=== PATIENT | male | born 1950 | race Caucasian/White ===

== ENCOUNTER 2018-09-18 21:46 | Outpatient (REF) | payer SELFPAY ==
[2018-09-18 22:23] LABS: Prothrombin Time 53.5 sec (9.3-11.0)
[2018-09-18 22:51] LABS: INR 5.3 (0.9-1.1)
== END 2018-09-18 22:06 ==
LOC: NCHCN 21:46
PROVIDERS: Orthopaedic Surgery; PCP Internal Medicine; Visit Provider Internal Medicine
DX: Z96.651 Presence of right artificial knee joint (principal); Z79.01 Long term (current) use of anticoagulants; Z51.81 Encounter for therapeutic drug level monitoring
CPT/HCPCS: 85610

== ENCOUNTER 2018-09-21 21:52 | Outpatient (REF) | payer SELFPAY ==
[2018-09-21 23:19] LABS: INR 3.8 (0.9-1.1); Prothrombin Time 38.3 sec (9.3-11.0)
== END 2018-09-21 22:12 ==
LOC: LBN 21:52
PROVIDERS: PCP Internal Medicine; Visit Provider Internal Medicine
DX: Z96.651 Presence of right artificial knee joint (principal); Z79.01 Long term (current) use of anticoagulants; Z51.81 Encounter for therapeutic drug level monitoring; R69 Illness, unspecified
CPT/HCPCS: 85610

== ENCOUNTER 2018-09-24 22:07 | Outpatient (REF) | payer SELFPAY ==
[2018-09-24 23:12] LABS: INR 1.6 (0.9-1.1); Prothrombin Time 16.4 sec (9.3-11.0)
== END 2018-09-24 22:27 ==
LOC: LBN 22:07
PROVIDERS: PCP Internal Medicine; Visit Provider Orthopaedic Surgery
DX: M17.11 Unilateral primary osteoarthritis, right knee (principal); Z96.651 Presence of right artificial knee joint; Z79.01 Long term (current) use of anticoagulants; R79.1 Abnormal coagulation profile
CPT/HCPCS: 85610

== ENCOUNTER 2018-09-28 21:00 | Outpatient (REF) | payer SELFPAY ==
[2018-09-28 21:57] LABS: INR 1.4 (0.9-1.1); Prothrombin Time 14.2 sec (9.3-11.0)
== END 2018-09-28 21:20 ==
LOC: LBO 21:00
PROVIDERS: PCP Internal Medicine; Visit Provider Orthopaedic Surgery
DX: Z96.651 Presence of right artificial knee joint (principal); Z47.1 Aftercare following joint replacement surgery; Z79.01 Long term (current) use of anticoagulants; Z51.81 Encounter for therapeutic drug level monitoring; R79.1 Abnormal coagulation profile
CPT/HCPCS: 85610

== ENCOUNTER 2018-10-01 20:49 | Outpatient (REF) | payer SELFPAY ==
[2018-10-01 21:27] LABS: INR 1.7 (0.9-1.1)
== END 2018-10-01 21:09 ==
LOC: LBN 20:49
PROVIDERS: PCP Internal Medicine; Visit Provider Orthopaedic Surgery
DX: R79.1 Abnormal coagulation profile (principal); Z96.653 Presence of artificial knee joint, bilateral; Z47.1 Aftercare following joint replacement surgery
CPT/HCPCS: 85610

== ENCOUNTER → 2023-05-09 00:16 | Outpatient (CLI) | payer OTHER, SELFPAY ==
--- NOTE | 2023-05-09 | DI.RAD_ITS ---
Exam(s) XR LUMBAR SPINE COMPLETE EXAM: XR LUMBAR SPINE COMPLETE CLINICAL HISTORY: BARBIE [id number] LOW BACK PAIN M54.50 SI JOINT PAIN. TECHNIQUE: 2D digital imaging was performed of the lumbar spine. Five images were obtained. AP, la teral, right oblique, left oblique and L5-S1 spot views were obtained. COMPARISON: No exams were available for comparison FINDINGS: BONES: No fracture or destructive lesion. There are endplate osteophytes at all levels of the lumbar spine. There are degenerative changes of the facets at multiple levels. DISKS: There is disc space narrowing at L3-L4 and L5-S1. ALIGNMENT: There is a mild right convex curvature of the lumbar spine centered at the L3-L4 level. N o spondylolysis or spondylolisthesis. SOFT TISSUE: Atherosclerosis is present. 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 DATA REPOSITORY: RADIATION DOSE DELIVERED:
== END ==
PROVIDERS: PCP Internal Medicine; Visit Provider Physician Assistant
DX: M51.36 Other intervertebral disc degeneration, lumbar region (principal)
CPT/HCPCS: 72110

== ENCOUNTER → 2023-11-27 02:28 | Outpatient (CLI) | payer OTHER, SELFPAY ==
--- NOTE | 2023-11-27 12:30 | DI.US_ITS ---
APPROVED REPORT EXAM: Comprehensive 2D, Doppler, and color-flow Echocardiogram Patient Location: Out-Patient Shingle Sawyer: Lea Marie RDCS (AE) Indications: Unspecified atrial fibrillation, HTN, OLIVER Other Information Study Quality: Adequate. Technically limited study due to body habitus. Conclusion Normal left ventricular wall thickness chamber size. Ejection fraction is 60%. Wall motion is normal Normal right venttricular size and function Both atria are normal in sizw. The aortic valve is sclerotic and trileaflet without stenosis or r egurgitation Mitral annular calcification. trace mitral regurgitation Estimated right ventricular systolic pressure is 27 mmHg Wall motion Left Ventricle The left ventricle is normal size. The left ventricular systolic function is normal. The left ventric ular ejection fraction is within the normal range. There is normal left ventricular wall thickness. T here is normal LV segmental wall motion. There is no ventricular septal defect visualized. LVEF is 6 0%. Right Ventricle The right ventricle is normal size. The right ventricular systolic function is normal. Atria The left atrium size is normal. The right atrium size is normal. The interatrial septum is intact wit h no evidence for an atrial septal defect. Aortic Valve Aortic valve is calcified. Aortic valve is trileaflet. No hemodynamically significant valvular aort ic stenosis. No aortic regurgitation is present. Mitral Valve Mild mitral annular calcification. No evidence of mitral valve stenosis. Trace mitral regurgitation. Tricuspid Valve The tricuspid valve is normal in structure. There is no tricuspid valve stenosis. Mild tricuspid regu rgitation. The RVSP is 27.2 mmHg. Pulmonic Valve The pulmonary valve is normal in structure. There is no pulmonic valvular stenosis. There is no pulmo geetha valvular regurgitation. Great Vessels The aortic root is normal in size. The ascending aorta is normal in size. Aortic arch is normal in ca liber. IVC is normal in size and collapses >50% with inspiration. Pericardium There is no pericardial effusion. 2D Dimensions IVSD d PLAX 1.20 cm M: 0.6-1.2 Ao Root d 3.18 cm M: 3.1 - 3.7 LVPW d PLAX 1.20 cm M: 0.6 - 1.2 Ao Asc Diam d 3.17 cm M: 2.6 - 3.4 LVID d PLAX 4.40 cm M: 4.2 - 5.8 LVDs 3.10 cm M: 2.5 - 4.0 LV EF Teichholz 58.0 % FS 29.59 % LV EDV (Teich) 116.5 mL LV ESV (Teich) 50.8 mL M-Mode TAPSE 2.10 cm (M/F) >1.7 Auto EF LV EDV A4C 96.6 mL LV EDV A2C 136.6 mL LV EDV BP 115.0 mL LV ESV A4C 40.6 mL LV ESV A2C 56.7 mL LV ESV BP 47.1 mL LVEF(%) A4C 58.0 % LVEF(%) A2C 58.5 % LVEF(%) BP 59.1 % LV SV A4C 56.1 ml LV SV A2C 79.9 ml LV SV BP 67.9 ml LV CO A4C 4.0 L/min LV CO A2C 7.1 L/min LV CO BP 5.5 L/min HR A4C 70.73 BPM HR A2C 88.67 BPM LV EDV Index (BP) LA Volume LA Length A4C 6.4 cm LA Length A2C 6.6 cm LA Area A4C s 19.96 cm2 LA Area A2C s 25.46 cm2 LA Vol A4C A-L 52.90 mL LA Vol A2C A-L 82.77 mL LA Vol Biplane A-L 67.5 mL LA Vol/BSA A4C A-L LA Vol/BSA A2C A-L LA Vol/BSA BP A-L 28.7 mL/m2 LA Vol A4C MOD 49.1 mL LA Vol A2C MOD 77.5 mL LA Vol BP MOD 62.6 mL RA Volume RA Area A4C 18.0 cm2 RA ESV A4C (A-L) 50.9mL RA Vol/BSA A4C A-L RA Length A4C 5.4 cm RA ESV A4C (MOD) 47.5mL LV Diastology MV E' medial 0.405 (>0.07 m/s) MV E Vmax 0.74 (0.4-1.3 m/s) MV E/E' MED 1.83 (<14) MV A Vmax 0.75 (0.4-1.3 m/s) MV E' lateral 0.106 (>0.1 m/s) E/A Ratio 1.0 MV E/E' LAT 6.97 (<14) MV E' Average 0.255 m/s MV E/E'(average) 2.90 Aortic Valve AoV Vmax 2.00 m/s LVOT Vmax 1.45 m/s AoV Peak Grad 15.9 mmHg LVOT Peak Grad 8.4 mmHg AoV Area (Vmax) 2.50 cm2 LVOT VTI 0.329 m AoV VTI 0.375 m LVOT Mean Grad 4.4 mmHg AoV Mean Demarcus. 1.43 m/s LVOT SV 113.42 mL AoV Mean Grad 9.2 mmHg LVOT Diam s 2.05 cm AoV Area (VTI) 3.02 cm2 Velocity Ratio 0.73 Mitral Valve MV DT 326 (160-240 msec) MV Vmax TIPS 0.74 m/s MV Mean Grad 1.4 (<2mmHg) MV VTI 0.262 m Pulmonary Valve PV Vmax 1.54 (0.5-1.5 m/s) RVOT Vmax 1.03 m/s PV Peak Grad 9.5 mmHg RVOT Peak Gr. 4.2 mmHg PV Mean Demarcus 1.05 m/s RVOT VTI 0.170 m PV Mean Grad 5.2 mmHg RVOT Mean Gr. 2.5 mmHg Tricuspid Valve RA Pressure 3.00 mmHg TR Vmax 2.46 m/s TV S' 0.16 m/s TR Peak Grad 24.2 mmHg RVSP (TR) 27.2 mmHg
--- NOTE | 2023-11-27 13:25 | DI.RAD_ITS ---
Exam(s) XR CHEST 2V PA LATERAL EXAM: XR CHEST 2V PA LATERAL CLINICAL HISTORY: [id number] J18.9 Pneumonia,unspecified organism, FU RLL Pneumonia. TECHNIQUE: 2D digital imaging was performed. COMPARISON: No exams were available for comparison FINDINGS: 2 views: Heart size is normal. The mediastinum is not widened. Left lung is clear. However, there is a concerning round thick-walled nodular infiltrate in the righ t upper lobe which measures 6 by 6 cm and exhibits a rim thickness of approximately 0.8 cm. Does not contain an obvious fluid level. There are no pleural effusions. No obvious prominence of the ipsil ateral right hilum. IMPRESSION: There is a 6 x 6 cm concerning round mass infiltrate in the right upper lobe. Chest CT scan recommen ded. Infectious versus neoplasm. There are no obvious pleural effusions. The opposite-left lung is clear. Referring office notified DATA REPOSITORY: RADIATION DOSE DELIVERED:
== END ==
PROVIDERS: PCP Internal Medicine; Visit Provider Physician Assistant
DX: J18.9 Pneumonia, unspecified organism (principal)
CPT/HCPCS: 71046; 93306

== ENCOUNTER 2023-12-17 11:46 | Emergency (ER) | payer OTHER, SELFPAY ==
[2023-12-17 11:50] VITALS: BP 117/72; PULSE 78; RESP 18; TEMP 36.9; O2SAT 98
--- NOTE | 2023-12-17 12:16 | W.ED.GENAD ---
Discharge Plan Disposition Patient Disposition: Home Condition: Good Discharge Details Clinical Impression: Chest wall contusion Primary Care Provider: Bruce Villa ED Provider: Carole Fritz Home Meds and New Rx's Prescriptions: No Action metformin 1,000 mg tablet 1,000 mg PO BID empagliflozin 25 mg tablet 25 mg PO DAILY atorvastatin 20 mg tablet 20 mg PO DAILY propranolol 80 mg tablet 80 mg PO ONCE lisinopril 10 mg tablet 10 mg PO DAILY cholecalciferol (vitamin D3) 25 mcg (1,000 unit) capsule 25 mcg PO DAILY acetaminophen 500 mg capsule 1,000 mg PO Q6H PRN pantoprazole 40 mg tablet,delayed release (DR/EC) 40 mg PO QAM Patient Comments: TAKE 1 TABLET BY MOUTH DAILY 30 MINUTES BEFORE FIRST MEAL Eliquis 5 mg tablet 5 mg PO Q12H Patient Comments: TAKE 1 TABLET BY MOUTH TWICE DAILY benzonatate 200 mg capsule 200 mg PO BID PRN Patient Comments: TAKE 1 CAPSULE BY MOUTH THREE TIMES DAILY NEEDED FOR COUGH Discharge Instructions Instructions: Contusion in Adults (ED) Additional Instructions: Please continue to encourage hydration. Use the incentive spirometer as instructed by nursing staff. Encourage deep breathing as this will help prevent recurrent pneumonia. May use Tylenol as needed for discomfort. Please continue with lidocaine patches, these are available [id number], to augment the Tylenol to help with your discomfort. You may also find splinting with a pillow helps when you need to cough or sneeze or take a deep breath. Please keep your upcoming appoint with your flower arranger. As you are leaving prior to the official x-ray read, I will call you with any abnormal results and you will need to return to the emergency department. Please follow-up with your primary care provider in the next 1 to 2 weeks for reevaluation. If you develop any shortness of breath, difficulty breathing, fever/chills or other new/worsening symptoms please seek care urgently once again. Referrals: Bruce Villa [Primary Care Provider] - Discharge Data Discharge Date/Time-TO BE ENTERED AT DEPARTURE: 12/17/23 15:03 HPI General Date/Time Provider Initiated Documentation: 12/17/23 12:05. Limitations to Documentation: no limitations. Information obtained by: patient, family () and RN notes reviewed. History of Present Illness 73 year old M presents to the emergency department with the chief complaint of left sided rib pain after fall over a week ago, described as moderate, Quality is described as aching, and is localized to the chest. Patient reports no radiation. Patient started experiencing this week(s) and it has been constant. Immobilization improves symptom(s), Movement worsens symptoms . Patient notes no other symptoms.. Patient did receive the following treatments prior to arrival, none Related Data Home Medications Medication Instructions Recorded Confirmed acetaminophen 500 mg capsule 1,000 mg PO Q6H PRN 12/17/23 12/17/23 apixaban 5 mg tablet (Eliquis) 5 mg PO Q12H 12/17/23 12/17/23 atorvastatin 20 mg tablet 20 mg PO DAILY 12/17/23 12/17/23 benzonatate 200 mg capsule 200 mg PO BID PRN 12/17/23 12/17/23 cholecalciferol (vitamin D3) 25 25 mcg PO DAILY 12/17/23 12/17/23 mcg (1,000 unit) capsule empagliflozin 25 mg tablet 25 mg PO DAILY 12/17/23 12/17/23 lisinopril 10 mg tablet 10 mg PO DAILY 12/17/23 12/17/23 metformin 1,000 mg tablet 1,000 mg PO BID 12/17/23 12/17/23 pantoprazole 40 mg tablet,delayed 40 mg PO QAM 12/17/23 12/17/23 release propranolol 80 mg tablet 80 mg PO ONCE 12/17/23 12/17/23 Allergies Allergy/AdvReac Type Severity Reaction Status Date / Time No Known Allergies Allergy Unverified 12/17/23 12:38 General Stated Complaint: Chest/Rib CK: 4 Review of Systems Constitutional Constitutional: Reports as per HPI, Denies chills, Denies fever(s), Denies headache(s) and Denies weakness ENT Ears, Nose, Mouth, and Throat: Denies headache(s) Cardiovascular Cardiovascular: Reports as per HPI Respiratory Respiratory: Reports as per HPI and Denies cough Musculoskeletal Musculoskeletal: Reports as per HPI and Denies tingling Integumentary/Breasts Skin/Breast: Reports as per HPI, Denies rash and Denies wounds Neurologic Neurologic: Reports as per HPI, Denies headache(s), Denies tingling, Denies paresthesias and Denies weakness Exam Const General: cooperative, healthy appearing, comfortable, no acute distress, well developed and well groomed Nutritional Appearance: well nourished and overweight Orientation: alert and awake Chest Chest: normal inspection of the chest, no crepitus, no localized rib tenderness, no masses, tenderness (left lateral chest wall) and No rash Resp Effort & Inspection: normal respiratory effort, able to speak in complete sentences and no respiratory distress Auscultation: clear to auscultation bilaterally Cardio Rate: regular rate Rhythm: regular rhythm Heart Sounds: S1 normal and S2 normal GI Inspection: normal to inspection Palpation: soft, not rigid and nontender Back/Spine/Pelvis Back: no CVA tenderness Cervical Spine: normal cervical lordosis, cervical ROM normal, No cervical spinal tenderness and No step off deformity Thoracic/Lumbar Spine: thoracic and lumbar spine normal to inspection, thoraco-lumbar ROM normal, pain with thoraco-lumbar ROM (in left lateral chest wall over ribs), No paraspinal tenderness, No thoraco-lumbar spasm, No thoracic spinal tenderness and No lumbar spinal tenderness Skin General skin exam: no rashes or lesions noted Lesions: no lesions Rashes: no rashes Trauma: no lacerations or abrasions Neuro General: patient alert and patient awake Cognition: normal cognition Speech: speech normal Gait: normal gait Motor: muscle tone normal throughout Sensory Exam: no sensory deficits noted Course Vital Signs Vital signs: Vital Signs Temperature 36.9 C 12/17/23 11:50 Pulse 78 12/17/23 11:50 Respiratory Rate 18 12/17/23 11:50 Blood Pressure 117/72 12/17/23 11:50 Pulse Oximetry 98 12/17/23 11:50 Temperature 36.9 C 12/17/23 11:50 Temperature Source Tympanic 12/17/23 11:50 Pulse 78 12/17/23 11:50 Respiratory Rate 18 12/17/23 11:50 Respiratory Effort Normal 12/17/23 12:03 Respiratory Depth Shallow 12/17/23 12:03 Respiratory Pattern Normal 12/17/23 12:03 Blood Pressure 117/72 12/17/23 11:50 Blood Pressure Position Sitting 12/17/23 11:50 Pulse Oximetry 98 12/17/23 11:50 Oxygen Delivery Method Room Air 12/17/23 11:50 Oxygen Flow Rate 0 12/17/23 11:50 Pain Level 8 12/17/23 11:50 Comment Took APAP early this morning. 12/17/23 11:50 Medical Decision Making Patient is a pleasant 73-year-old male, companied by his , with chief complaint of left-sided rib pain that began just over a week ago after patient fell. He reports that he has poor balance, is being followed by his primary care for this. States that he walks with a cane but sometimes he tries to walk short distances without it when he gets out of the car. Reports that about a week ago, he took a tumble towards the right side during 1 of these episodes. He reports that his difficulty with equilibrium began quite sometime ago and has not acutely changed. He denies any shortness of breath or difficulty breathing. He does state that pain is worse with deep inspiration. Reports he was recently treated for pneumonia. Has not had any cough or fevers. Reports that when he fell he landed on his side against the ground. Denies striking his head. No loss of consciousness. Denies any abdominal pain. No hematuria. No change in bowel or bladder habits. Denies any pain in the abdomen. No nausea or vomiting. No incontinence. Denies any neck or back pain. He does report that he has had a small amount of blood up post his pneumonia with deep coughing but this sounds to be very small amount. On exam, patient appears nontoxic. He appears uncomfortable with movement but otherwise stable. His vital signs are stable. His lungs are clear. Normal cardiac exam. Abdomen benign. He is tender along the left lateral ribs but no focal area of discomfort, no step-offs palpable. Lung sounds are clear. No appreciable ecchymosis. Patient has an appointment with his flower arranger in the [place] in 1 hour. As this will be difficult to reschedule, will obtain a rib series and attempt to discharge him shortly, we discussed discharge prior to the read from the radiologist. Will ensure no pneumothorax or complication but based on his exam, I find this unlikely. If needed, patient is willing to come back to the emergency department after his cardiology appointment Reviewed CXR, no pneumo noted by myself. To get them to appointment, will d/c and call with results once read by radiologist. Discussed supportive care and return precautions. He has IS at home and will use as he has had pna in the past. Encouraged hydration. All of thier quesitons and concenrs were addressed. After their departure, imaging was reviewed by radiologist. MEDIASTINUM: Normal. HEART: Normal. PULMONARY VASCULATURE: Normal. LUNGS: The thick-walled cystic structure in the right upper lobe is again seen. The lungs are otherwise clear. PLEURAL SPACE: No pleural effusion or pneumothorax. BONE:Within normal limits for the patient's age. There is a fracture of the anterior aspect of the left 8th rib. It is mildly displaced. There is an old healed left 7th rib fracture. LEFT RIBS: Normal. OTHER FINDINGS:Normal. IMPRESSION: 1. Persistent right upper lobe cavitary lesion. 2. Mildly displaced fracture of the anterior aspect of the left 8th rib. 3. No pneumothorax or pleural effusion. Called and patient, spoke with them regarding the broken rib. They mentioned a recent CT that they had, reviewed images and report myself. Concerning for possible malignancy vs. asperigolloma, large cavitary lesion. We discussed this. 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 They have an appointment next week but I advised that they call with the results and to discuss as they recommended biopsy. Answered questions, they agree with this plan. Discussed supportive care for rib fx. He has IS at home, has appointment with PCP next week. Quality:SDOH Health Related Social Needs: Health related social needs risk of homeless PFSH All Active Problems (Updated 12/17/23 @ 12:38 by NAMITA Villareal) Chest wall contusion (Acute) Social History Smoking/Tobacco Use Status: Never Smoking risk assessment performed?: Yes Alcohol Intake: current Alcohol Intake frequency: 0-2 drinks per day Alcohol type: beer Substance use type: does not use Housing: house Do you feel safe at home: Yes Do you feel safe in your relationship?: Yes PAWSS Have you Been Recently Intoxicated or Drunk Within the Last 30 days?: No Have you Ever Experienced Previous Episodes of Alcohol Withdrawal?: No Have you ever Experienced Withdrawal Seizures?: No Have you ever Experienced Delirium Tremens(DT)s?: No Have you ever undergone Alcohol Rehabilitation Treatment (i.e, inpt ot outpatient treatment programs)?: No Have you ever Experienced Blackouts?: No Have you ever Combined Alcohol with other Downers within the last 90 days?: No Have you ever Combined Alcohol with any other Substance of Abuse during the last 90 days?: No Positive Blood Alcohol level on Presentation? [PCS.BAL]: No Evidence of Increased Autonomic Activity (i.e. HR>120, tremor, sweating, agitation, nausea)?: No Result: 0
[2023-12-17] MEDS: Acetaminophen 500 MG TAB 1000 MG PO (12:21)
--- NOTE | 2023-12-17 12:50 | DI.RAD_ITS ---
Exam(s) XR RIBS LT W PA LAT CHEST EXAM: XR RIBS LT W PA LAT CHEST CLINICAL HISTORY: fall onto left ribs one week ago TECHNIQUE: 2D digital imaging was performed. Six images are obtained. COMPARISON: CR XR CHEST 2V PA LATERAL from 11/27/[address] CHEST WO from 12/12/2023 FINDINGS: MEDIASTINUM: Normal. HEART: Normal. PULMONARY VASCULATURE: Normal. LUNGS: The thick-walled cystic structure in the right upper lobe is again seen. The lungs are otherw ise clear. PLEURAL SPACE: No pleural effusion or pneumothorax. BONE:Within normal limits for the patient's age. There is a fracture of the anterior aspect of the l eft 8th rib. It is mildly displaced. There is an old healed left 7th rib fracture. LEFT RIBS: Normal. OTHER FINDINGS:Normal. IMPRESSION: 1. Persistent right upper lobe cavitary lesion. 2. Mildly displaced fracture of the anterior aspect of the left 8th rib. 3. No pneumothorax or pleural effusion. DATA REPOSITORY: RADIATION DOSE DELIVERED:
[2023-12-17] MEDS: Lidocaine 5% Patch 1 PATCH TP (13:02)
== END 2023-12-17 15:03 | disposition home or self-care (01) ==
LOC: ER 13:25
PROVIDERS: Emergency Provider Physician Assistant; PCP Internal Medicine
DX: S20.212A Contusion of left front wall of thorax, initial encounter (principal); S22.32XA Fracture of one rib, left side, initial encounter for closed fracture; W01.0XXA Fall on same level from slipping, tripping and stumbling without subsequent striking against object, initial encounter; Y93.01 Activity, walking, marching and hiking; Y92.89 Other specified places as the place of occurrence of the external cause; Z79.01 Long term (current) use of anticoagulants
CPT/HCPCS: 99283; 71046; 71100

== ENCOUNTER 2024-05-06 15:01 | Emergency (ER) | payer OTHER, SELFPAY ==
[2024-05-06] VITALS (19 sets, daily range): BP systolic 119–141; BP diastolic 71–89; PULSE 54–97; RESP 12–20; TEMP 36.2; O2SAT 93–95
--- NOTE | 2024-05-06 15:45 | RT.EKG_ITS ---
APPROVED REPORT Exam: Resting ECG Reason for Exam: dizziness Patient Location: E HR:93 bpm ECG Measurements Heart Rate 93 AXIS ID 167 P 46 QRSd 99 QRS 76 QT 405 T -19 QTc 505 Conclusion Unknown rhythm, irregular rate...V-rate 75-129, variation>10% Nonspecific T abnormalities, diffuse leads...T <-0.10mV, ant/lat/inf Prolonged QT interval...QTc >500mS
--- NOTE | 2024-05-06 16:30 | DI.CT_ITS ---
Exam(s) CT BRAIN NECK CTA EXAM: CT BRAIN NECK CTA CLINICAL HISTORY: dizziness with ambulation, unsteady. TECHNIQUE: Imaging Protocol: Axial CT angiography was performed with multi-slice acquisition and mu lti-planar and/or 3D reconstructions. CONTRAST MATERIAL: Intravenous: Omnipaque 350 contrast volume:70 mL COMPARISON: CT CT CHEST WO from 12/12/2023 FINDINGS: CT Head W/O and W: Ventricles and Extra axial spaces: Normal in size and morphology for the patient's age. There is a 9 mm extra-axial mass along the high left parietal convexity which is partially calcified. The finding is most suggestive of a meningioma. Hemorrhage: None. Cerebral parenchyma: No evidence of an acute territorial infarct. No mass effect is identified. Midline shift: None. Brainstem/Cerebellum: Normal. Calvarium: Normal. Visualized Paranasal sinuses/Mastoids: Mucosal thickening in the visualized paranasal sinuses. Soft Tissues: Unremarkable. Enhancement: Unremarkable. CTA Neck W: Common Carotid: Right: No dissection, occlusion or significant stenosis. Left: No dissection, occlusion or significant stenosis. External Carotid: Right: No occlusion or significant stenosis. Left: No occlusion or significant stenosis. Internal Carotid: Right: No dissection, occlusion or significant stenosis. There is atherosclerotic calcification at t he origin of the internal carotid artery but no significant stenosis. Left: No dissection, occlusion or significant stenosis. Atherosclerotic calcification is seen at the origin of the internal carotid artery but no significant stenosis is seen. Vertebral Artery: Right: No dissection, occlusion or significant stenosis. Atherosclerosis at the origin of the right vertebral artery but no significant stenosis. Left: No dissection, occlusion or significant stenosis. Lung Apices: There is again seen scarring in the right upper lobe. There has been decrease in size o f the right upper lobe cavitary lesion. There is again seen bronchial wall thickening and scar bronc hiectasis in the right lung. Bones: Within normal limits for the patient's age. Degenerative changes are present throughout the ce rvical spine. Soft Tissues: Normal. Thyroid gland: Unremarkable. CTA Brain W: Internal Carotid Arteries: Atherosclerotic calcification is seen in the internal carotid arteries but no significant stenosis. No aneurysm or occlusion. Anterior Cerebral Arteries: Right: No aneurysm, occlusion or significant stenosis. Left: No aneurysm, occlusion or significant stenosis. Middle Cerebral Arteries: Right: No aneurysm, occlusion or significant stenosis. Left: No aneurysm, occlusion or significant stenosis. Posterior Cerebral Arteries: Right: No aneurysm, occlusion or significant stenosis. Left: No aneurysm, occlusion or significant stenosis. Vertebral Arteries: Right: No aneurysm, occlusion or significant stenosis. Left: No aneurysm, occlusion or significant stenosis. Basilar Artery: No aneurysm, occlusion or significant stenosis. IMPRESSION: 1. No large vessel occlusion or significant stenosis on the CT angiography of the head. 2. No acute intracranial process. 3. No occlusion or significant stenosis on the CT angiography of the neck. RADIATION DOSE DELIVERED: Total DLP DATA REPOSITORY: All CT scans at this facility are submitted to the National Radiology Data Registry (NRDR) Dose Index Registry (DIR) with the [employer] (ACR). RADIATION OPTIMIZATION: All CT scans at this facility use at least one of these dose optimization te chniques: automated exposure control; mA and/or kV adjustment per patient size (includes targeted exa ms where dose is matched to clinical indication); or iterative reconstruction.
--- NOTE | 2024-05-06 16:30 | DI.RAD_ITS ---
Exam(s) XR CHEST 2V PA LATERAL EXAM: XR CHEST 2V PA LATERAL CLINICAL HISTORY: dizziness TECHNIQUE: 2D digital imaging was performed of the chest. Two images were obtained. PA and lateral views were obtained. COMPARISON: CR XR RIBS LT W PA LAT CHEST from 12/17/2023 FINDINGS: MEDIASTINUM: Normal. HEART: Normal. PULMONARY VASCULATURE: Normal. LUNGS: A cavitary lesion in the right upper lobe has shown interval decrease in size. No focal conso lidating infiltrates are present. PLEURAL SPACE: No pleural effusion or pneumothorax. BONE:Within normal limits for the patient's age. OTHER FINDINGS:Normal. IMPRESSION: No acute pulmonary findings. DATA REPOSITORY: RADIATION DOSE DELIVERED:
--- NOTE | 2024-05-06 16:35 | ED.GENADUL_ITS ---
Discharge Plan Disposition Patient Disposition: Home Condition: Stable Discharge Details Clinical Impression: Dizziness, Hypomagnesemia Primary Care Provider: Bruce Villa ED Provider: Suad Jamison Home Meds and New Rx's Prescriptions: No Action metformin 1,000 mg tablet 1,000 mg PO BID empagliflozin 25 mg tablet 25 mg PO DAILY atorvastatin 20 mg tablet 20 mg PO DAILY propranolol 80 mg tablet 80 mg PO ONCE lisinopril 10 mg tablet 10 mg PO DAILY cholecalciferol (vitamin D3) 25 mcg (1,000 unit) capsule 25 mcg PO DAILY acetaminophen 500 mg capsule 1,000 mg PO Q6H PRN pantoprazole 40 mg tablet,delayed release (DR/EC) 40 mg PO QAM Patient Comments: TAKE 1 TABLET BY MOUTH DAILY 30 MINUTES BEFORE FIRST MEAL Eliquis 5 mg tablet 5 mg PO Q12H Patient Comments: TAKE 1 TABLET BY MOUTH TWICE DAILY Discharge Instructions Instructions: Low Magnesium Level Additional Instructions: Please follow-up with your primary care provider for further evaluation of your dizziness. A referral to cardiology may be indicated. Keep your other specialist appointments and MRI appointment they have already set. Your workup today was reassuring; there is no evidence of blockage in the blood vessels of your brain. The only minor finding that we did find was that your magnesium was slightly low. I recommend that you take an vjjy-rhl-alirezh magnesium supplement such as Calm, a dissolvable supplement. Take according to package instructions. Return to emergency care if you develop new chest pain, episodes of passing out, severe headaches, vision change, uncontrollable nausea/vomiting, or if you are very worried and need to be rechecked again immediately. Referrals: Bruce Villa [Primary Care Provider] - [facility] General Date/Time Provider Initiated Documentation: 05/06/24 15:11 . [facility] Narrative: Bo Peña is a 73-year-old male with A-fib on anticoagulation with Eliquis, diabetes, HTN, HLD, and lung disease who presents to the emergency department for evaluation of dizziness. He reports onset was a couple of weeks ago unknown onset, says it has been gradually increasing in frequency and severity; it makes him feel unsteady on his feet and is worse with exertion. This is not accompanied by any other symptoms such as shortness of breath. does also note that he has had increasing confusion/word finding over the last couple of weeks since onset. He denies associated fever/chills, headache, vision changes, sore throat, congestion, cough, tinnitus, nausea/vomiting, chest pain, abdominal pain, change in bowel/bladder function, extremity weakness/parasthesias. He does not check his BG at home, but does check BP regularly (usually in the 110s-120s systolic). Denies h/o IL or CVA. He was evaluated at the [facility], advised to come to the ED for head scan because they were booking out to July. He is accompanied by his Physical exam remarkable for unsteadiness on feet with standing and slightly ataxic/unsteady gait. Alert and oriented x 3. Some mild word finding noted. Normal finger finger, finger-nose, Romberg, rapid alternating movements. 5 out of 5 muscle strength upper and lower extremities. Cranial nerves II through XII intact as tested. Moist mucous membranes. PERRL, EOMs intact. Easy work of breathing, lung sounds clear bilaterally. Normal heart sounds. Irregularly irregular rate. DDx includes but is not limited to: CVA, intracranial mass, electrolyte imbalance, occult infection, severe anemia, orthostatic hypotension, dehydration I independently interpreted the following tests: EKG notable for irregularly irregular heart rate, sinus rhythm. No changes consistent with acute ischemia, diffuse T wave inversions noted. No previous available for comparison. CBC, CMP reassuring. Magnesium slightly low at 1.6. UA not consistent with UTI. I did review [facility] records. Casey has history of pulmonary blastomycosis being treated with izoconazole, however providers do not believe this is related to new onset of symptoms. PCP doesintend to get an MRI outpatient, patient says that this is scheduled for July. CTA today reassuring, no acute occlusions or significant stenosis noted. Unclear etiology of feeling offkilter. No red flags on today's exam concerning for serious emergent etiology requiring further workup on emergency basis. Possible neurologic etiology, recommend f/u with outpt MRI and specialist follow up as scheduled. Reviewed red flags indicating need for return to emergency care. I did discuss noted hypomagnesemia with patient, he reports he has recently started magnesium supplements as this was noted outpatient as well. Related Data Home Medications ?Medication ?Instructions ?Recorded ?Confirmed acetaminophen 500 mg capsule 1,000 mg PO Q6H PRN 12/17/23 05/06/24 apixaban 5 mg tablet (Eliquis) 5 mg PO Q12H 12/17/23 05/06/24 atorvastatin 20 mg tablet 20 mg PO DAILY 12/17/23 05/06/24 cholecalciferol (vitamin D3) 25 25 mcg PO DAILY 12/17/23 05/06/24 mcg (1,000 unit) capsule empagliflozin 25 mg tablet 25 mg PO DAILY 12/17/23 05/06/24 lisinopril 10 mg tablet 10 mg PO DAILY 12/17/23 05/06/24 metformin 1,000 mg tablet 1,000 mg PO BID 12/17/23 05/06/24 pantoprazole 40 mg tablet,delayed 40 mg PO QAM 12/17/23 05/06/24 release propranolol 80 mg tablet 80 mg PO ONCE 12/17/23 05/06/24 Allergies Allergy/AdvReac Type Severity Reaction Status Date / Time No Known Allergies Allergy Verified 05/06/24 15:10 General Stated Complaint: Dizzy/Sync CK: 3 Review of Systems Narrative: see HPI Exam Const General: cooperative, healthy appearing, comfortable, no acute distress and well groomed Nutritional Appearance: overweight Orientation: alert and oriented x3 HENMT Head: normal to inspection Ears: hearing grossly normal bilaterally General nose exam: external nose normal Mouth: oral mucosae normal and moist mucous membranes Throat: posterior oropharynx normal Eyes Pupils: PERRL EOM: EOM intact bilaterally Resp Effort & Inspection: normal respiratory effort and able to speak in complete sentences Auscultation: clear to auscultation bilaterally Cardio Jugular venous pressure: no JVD Rate: regular rate Rhythm: abnormal rhythm irregularly irregular Neuro General: patient alert, patient oriented x3, tone normal, moves all extremities, no meningeal signs, no focal motor deficits and CN's II-XI intact bilaterally Cranial Nerves: CN's II-XI intact bilaterally, PERRL, EOM intact bilaterally, no nystagmus and hearing normal Cognition: abnormal cognition (word finding noted, somewhat slow to answer questions at times) Gait: ataxic Motor: muscle tone normal throughout Coordination: [id number] test normal and Romberg test normal Course Vital Signs Vital signs: Vital Signs Temperature 36.2 C L 05/06/24 15:07 Pulse 81 05/06/24 15:07 Respiratory Rate 16 05/06/24 15:07 Blood Pressure 119/71 05/06/24 15:07 Pulse Oximetry 95 05/06/24 15:07 Temperature 36.2 C L 05/06/24 15:07 Pulse 81 05/06/24 15:07 Respiratory Rate 16 05/06/24 15:07 Respiratory Effort Normal 05/06/24 15:12 Blood Pressure 119/71 05/06/24 15:07 Pulse Oximetry 95 05/06/24 15:07 Oxygen Delivery Method Room Air 05/06/24 15:07 Oxygen Flow Rate 0 05/06/24 15:07 Pain Level 0 05/06/24 15:07 Medical Decision Making Imaging Data Radiologic Study: Radiologist's impression: EXAM: CT BRAIN NECK CTA CLINICAL HISTORY: dizziness with ambulation, unsteady. TECHNIQUE: Imaging Protocol: Axial CT angiography was performed with multi- slice acquisition and multi-planar and/or 3D reconstructions. CONTRAST MATERIAL: Intravenous: Omnipaque 350 contrast volume:70 mL COMPARISON: CT CT CHEST WO from 12/12/2023 FINDINGS: CT Head W/O and W: Ventricles and Extra axial spaces: Normal in size and morphology for the patient's age. There is a 9 mm extra-axial mass along the high left parietal convexity which is partially calcified. The finding is most suggestive of a meningioma. Hemorrhage: None. Cerebral parenchyma: No evidence of an acute territorial infarct. No mass effect is identified. Midline shift: None. Brainstem/Cerebellum: Normal. Calvarium: Normal. Visualized Paranasal sinuses/Mastoids: Mucosal thickening in the visualized p aranasal sinuses. Soft Tissues: Unremarkable. Enhancement: Unremarkable. CTA Neck W: Common Carotid: Right: No dissection, occlusion or significant stenosis. Left: No dissection, occlusion or significant stenosis. External Carotid: Right: No occlusion or significant stenosis. Left: No occlusion or significant stenosis. Internal Carotid: Right: No dissection, occlusion or significant stenosis. There is atherosclerotic calcification at the origin of the internal carotid artery but no significant stenosis. Left: No dissection, occlusion or significant stenosis. Atherosclerotic calcification is seen at the origin of the internal carotid artery but no significant stenosis is seen. Vertebral Artery: Right: No dissection, occlusion or significant stenosis. Atherosclerosis at the origin of the right vertebral artery but no significant stenosis. Left: No dissection, occlusion or significant stenosis. Lung Apices: There is again seen scarring in the right upper lobe. There has been decrease in size of the right upper lobe cavitary lesion. There is again seen bronchial wall thickening and scar bronchiectasis in the right lung. Bones: Within normal limits for the patient's age. Degenerative changes are present throughout the cervical spine. Soft Tissues: Normal. Thyroid gland: Unremarkable. CTA Brain W: Internal Carotid Arteries: Atherosclerotic calcification is seen in the internal carotid arteries but no significant stenosis. No aneurysm or occlusion. Anterior Cerebral Arteries: Right: No aneurysm, occlusion or significant stenosis. Left: No aneurysm, occlusion or significant stenosis. Middle Cerebral Arteries: Right: No aneurysm, occlusion or significant stenosis. Left: No aneurysm, occlusion or significant stenosis. Posterior Cerebral Arteries: Right: No aneurysm, occlusion or significant stenosis. Left: No aneurysm, occlusion or significant stenosis. Vertebral Arteries: Right: No aneurysm, occlusion or significant stenosis. Left: No aneurysm, occlusion or significant stenosis. Basilar Artery: No aneurysm, occlusion or significant stenosis. IMPRESSION: 1. No large vessel occlusion or significant stenosis on the CT angiography of the head. 2. No acute intracranial process. 3. No occlusion or significant stenosis on the CT angiography of the neck. Quality:SDOH Health Related Social Needs: Health related social needs risk of homeless PFSH All Active Problems (Updated 05/06/24 @ 19:26 by Suad Santillan) Hypomagnesemia (Acute) Dizziness (Acute) Social History Smoking/Tobacco Use Status: Never Smoking risk assessment performed?: Yes Alcohol Intake: current Alcohol Intake frequency: 0-2 drinks per day Alcohol type: beer Substance use type: does not use Housing: house Do you feel safe at home: Yes Do you feel safe in your relationship?: Yes
[2024-05-06 16:58] LABS: Abs Immature Grans 0.01 10^3/uL (0.0-0.06); Absolute Basophil Count 0.05 10^3/uL (0.0-0.2); Absolute Eosinophil Count 0.13 10^3/uL (0.0-0.7); Absolute Lymphocyte Count 1.48 10^3/uL (1.2-3.4); Absolute Monocyte Count 0.38 10^3/uL (0.1-0.8); Absolute Neutrophil Count 2.15 10^3/uL (1.2-6.7); Basophils % 1.2 %; Eosinophils % 3.1 %; HCT 41.6 % (40.0-50.0); HGB 14.4 g/dL (13.5-17.5); Immature Grans % 0.2 %; Lymphocytes % 35.2 %; MCH 33.4 pg (27.0-33.0); MCHC 34.6 % (32.0-36.0); MCV 97 fL (80-95); MPV 10.1 fL (8.0-11.0); Neutrophils % 51.3 %; Platelet Count 130 10^3/uL (130-400); RBC 4.31 10^6/uL (4.36-5.78); RDW 14.5 % (11.8-14.1); RDW-SD 51.8 fL
[2024-05-06 17:16] LABS: ALT 26 U/L (16-63); AST 24 U/L (15-37); Albumin 3.3 g/dL (3.4-5.0); Alkaline Phosphatase 98 U/L (46-116); BUN 11 mg/dL (7-18); Bilirubin, Total 1.25 mg/dL (0.2-1.0); CREATININE 1.1 mg/dL (0.70-1.30); Calcium 8.9 mg/dL (8.5-10.1); Chloride 104 mmol/L (98-107); Estimated GFR 70.01 (mL/min/1.73m2); Glucose 161 mg/dL (74-106); Magnesium 1.6 mg/dL (1.8-2.4); Sodium 142 mmol/L (136-145); Total Protein 6.7 g/dL (6.4-8.2)
[2024-05-06] MEDS: Normal Saline - Diluent 50 ML VIAL IJ (18:22)
[2024-05-06] MEDS: Omnipaque 350 MG/ML 100 ML BTL 70 ML IJ (18:23)
[2024-05-06 19:05] LABS: Bilirubin Negative (Negative); Blood Negative (Negative); Clarity Clear (Clear); Glucose >=1000 mg/dL (Negative); Ketones Negative (Negative); Leukocyte Esterase Negative (Negative); Nitrite Negative (Negative); Specific Gravity 1.015 (1.005-1.025); pH 5.5 (5-8)
[2024-05-06 19:15] LABS: Bacteria Negative HPF (Negative); C & S Indicated? No; Crystals Negative HPF (Negative); Epithelial Cells Rare HPF (Negative); Mucus Negative (Negative); RBC 0-2 HPF (0-2); WBC Negative HPF (0-5)
== END 2024-05-06 19:35 | disposition home or self-care (01) ==
PROVIDERS: Emergency Provider Nurse Practitioner Family; PCP Internal Medicine
DX: E83.42 Hypomagnesemia; R94.31 Abnormal electrocardiogram [ECG] [EKG]; I48.91 Unspecified atrial fibrillation; E11.9 Type 2 diabetes mellitus without complications; I10 Essential (primary) hypertension; E78.5 Hyperlipidemia, unspecified; Z79.01 Long term (current) use of anticoagulants; Z79.84 Long term (current) use of oral hypoglycemic drugs
CPT/HCPCS: 36415; 70496; 70498; 80053; 82962; 93005; 99285; 71046; 81003; 81015; 83735; 85025; 93010; 99284; J3490

== ENCOUNTER 2025-04-13 10:22 | Emergency (ER) | payer OTHER, SELFPAY ==
[2025-04-13] VITALS (14 sets, daily range): BP systolic 113–122; BP diastolic 64–78; PULSE 66–83; RESP 16; TEMP 36.8; O2SAT 91–97
--- NOTE | 2025-04-13 10:45 | DI.CT_ITS ---
Exam(s) CT ABDOMEN PELVIS WO EXAM: CT ABDOMEN PELVIS WO CLINICAL HISTORY: hematuria, fall. TECHNIQUE: Imaging Protocol: Axial computed tomography images with coronal and sagittal reformatted images were created and reviewed CONTRAST MATERIAL: Intravenous: none Oral: None COMPARISON: No exams were available for comparison FINDINGS: VISUALIZED LUNG BASES: No nodules nor pleural effusions evident. ABDOMEN: There is no ascites. No evidence of mesenteric nor bowel wall hematoma. LIVER: Somewhat cirrhotic appearing. No lacerations nor subcapsular hematoma. There are no obvious focal hepatic lesions evident of this noninfused study. GALLBLADDER/BILIARY: No obvious gallbladder pathology. CBD is not dilated. PANCREAS: No evidence of pancreatic mass nor dilatation of the pancreatic duct. SPLEEN: There is splenomegaly. The craniocaudal measurement of the spleen is 13.8 cm. There are multiple collateral varices. The splenic vein diameter is also prominent, measuring 1.5 cm. Cannot assess for patency without IV contrast. There is no evidence of splenic laceration nor subcapsular hematoma. ADRENALS: No adrenal masses nor evidence of adrenal hemorrhage. KIDNEYS:No evidence of acute renal laceration or subcapsular hematoma. There is bilateral nonobstructive nephrolithiasis. The largest calculus is in the the lower pole of the right kidney measuring 5 mm. No hydronephrosis. There is a small hyperdensity in the inferior pole the left kidney which is probably hemorrhagic cyst measuring 7 x 6 mm. There is symmetrical perinephric streaking. No obvious solid renal masses evident on this noninfused study. ABDOMINAL AORTA: Abdominal aorta is not enlarged. There is retroaortic left renal vein in addition to a pre aortic left renal vein. LYMPH NODES: There is no retroperitoneal nor paraaortic adenopathy. ABDOMINAL WALL: No evidence of significant anterior abdominal wall nor inguinal hernia. Some density in the subcutaneous tissues over the mid back is noted possibly representing bruising, slightly more to the right of midline. No large hematoma. No drainable fluid collection. GI: There is no evidence of bowel obstruction, free air, nor abscess. PELVIS: LYMPH NODES: There is no intrapelvic nor inguinal adenopathy. GI: No evidence of appendicitis.No evidence of sigmoid diverticulitis. URINARY BLADDER: No calculi nor obvious masses evident REPRODUCTIVE: Mild enlarged prostate. Seminal vesicles unremarkable. OSSEOUS: No evidence of pelvic nor hip fractures. Sacroiliac joints appear intact. There is multilevel chronic degenerative disc disease with most prominent disc space narrowing at L3-4 level. No listhesis. No compression fractures. No sacral fractureNo significant osseous lesions. IMPRESSION: 1. No evidence of acute trauma sequelae in the abdomen pelvis 2. Incidentally noted is cirrhotic appearing liver and splenomegaly and numerous collaterals-varices. Signs of significant portal hypertension. No evidence of ascites. 3. No fractures 4. Bilateral nonobstructive nephrolithiasis. There is also a 7 millimeter hyperdensity in the inferior aspect of the left kidney which is probably a small hemorrhagic cyst. Cannot completely exclude that this may be related to the acute trauma. Correlation with site of tenderness recommended. Report called by myself to ER physician 04/13/2025 at 2:25 RADIATION DOSE DELIVERED: 1,222.76mGy.cm Total DLP DATA REPOSITORY: All CT scans at this facility are submitted to the National Radiology Data Registry (NRDR) Dose Index Registry (DIR) with the [employer] ([employer]). RADIATION OPTIMIZATION: All CT scans at this facility use at least one of these dose optimization techniques: automated exposure control; mA and/or kV adjustment per patient size (includes targeted exams where dose is matched to clinical indication); or iterative reconstruction.
--- NOTE | 2025-04-13 10:45 | DI.CT_ITS ---
Exam(s) CT HEAD WO EXAM: CT HEAD WO CLINICAL HISTORY: fall. TECHNIQUE: Imaging Protocol: Axial computed tomography images with coronal and sagittal reformatted images were created and reviewed COMPARISON: No exams were available for comparison FINDINGS: There are no skull fractures. There is opacification of posterior left sided ethmoidal air cell and left side of the sphenoid sinus, unchanged from previous. There is no bone destruction. Remainder of the paranasal sinuses are clear. There is no evidence of intracranial hemorrhage, mass effect, or shift of midline structures. There are no extra-axial fluid collections. The ventricles are not enlarged or shifted and there is no blood within the ventricular system nor within the basal cisterns. There is relatively symmetrical periventricular hypodensity consistent with chronic small vessel disease. No evidence of acute territorial infarct. IMPRESSION: No acute intracranial findings on this noninfused CT scan of the brain. Report called by myself to ER 04/13/2025 at 2 14 p.m. RADIATION DOSE DELIVERED: 881.55mGy.cm Total DLP DATA REPOSITORY: All CT scans at this facility are submitted to the National Radiology Data Registry (NRDR) Dose Index Registry (DIR) with the [employer] ([employer]). RADIATION OPTIMIZATION: All CT scans at this facility use at least one of these dose optimization techniques: automated exposure control; mA and/or kV adjustment per patient size (includes targeted exams where dose is matched to clinical indication); or iterative reconstruction.
--- NOTE | 2025-04-13 11:03 | W.ED.GENAD ---
Discharge Plan Disposition Patient Disposition: Home Condition: Stable Discharge Details Clinical Impression: Hematuria, Fall, Kidney stones Primary Care Provider: Petrona Wynne ED Provider: Bernie Robin Home Meds and New Rx's Prescriptions: No Action empagliflozin 25 mg tablet 25 mg PO DAILY atorvastatin 20 mg tablet 20 mg PO DAILY propranolol 80 mg tablet 40 mg PO DAILY cholecalciferol (vitamin D3) 25 mcg (1,000 unit) capsule 25 mcg PO DAILY acetaminophen 500 mg capsule 1,000 mg PO Q6H PRN pantoprazole 40 mg tablet,delayed release (DR/EC) 40 mg PO QAM Patient Comments: TAKE 1 TABLET BY MOUTH DAILY 30 MINUTES BEFORE FIRST MEAL Eliquis 5 mg tablet 5 mg PO Q12H Patient Comments: TAKE 1 TABLET BY MOUTH TWICE DAILY tamsulosin 0.4 mg capsule 0.4 mg PO DAILY Patient Comments: TAKE ONE CAPSULE BY MOUTH EVERY DAY fluoxetine 10 mg capsule 10 mg PO DAILY isavuconazonium sulfate 186 mg capsule 186 mg PO DAILY magnesium oxide 400 mg magnesium tablet 400 mg PO DAILY Ozempic 2 mg/dose (8 mg/3 mL) pen injector 2 mg subcut QWEEK sildenafil [Viagra] 50 mg tablet 50 mg PO DAILY PRN Rx Instructions: administer 30 minutes to 4 hours before activity tiotropium bromide 2.5 mcg/actuation mist 2 inh inhalation DAILY Discharge Instructions Instructions: Kidney Stone, Adult ED, Blood in Urine (Hematuria), Adult ED Additional Instructions: The CT of your head today was unremarkable. The CT of your and pelvis shows bilateral kidney stones which are nonobstructing. There is also a possible kidney cyst. Your urinalysis does show the blood but does not show any signs of infection. Your platelet count is slightly low today. This is likely secondary to your cirrhosis. Please follow-up with your cirrhosis doctor. I also recommend follow-up with urology. You may need cystoscopy to look at your bladder and or intervention for the the kidney stones. Discharge Data Discharge Physician: Bernie Robin [facility] General Date/Time Provider Initiated Documentation: 04/13/25 10:32. HPI Narrative: 74-year-old male with history of atrial fibrillation on Eliquis presents for evaluation of gross hematuria. Patient has frequent falls. Yesterday he was attempting to get out of the car when he fell down onto the ground. He landed on his bottom and on his side. He is not sure if he hit his head. He did not have any loss of consciousness. His daughter was able to help him up. Afterwards he was able to walk without any difficulty using his walker. He denies any headache. No blurry vision or double vision. No nausea or vomiting. No chest pain or shortness of breath. No abdominal pain. No flank pain. He states that during the night he used a urinal and this morning his urine was very dark. They felt like there was blood in it. He denies any increased urinary frequency or dysuria. No flank pain. He has had kidney stones in the past. Denies any history of UTI. He does feel like he is emptying his bladder completely. He also has wound to his right arm from a fall the day prior. Denies any numbness or tingling to his extremities. No weakness in his extremities. Related Data Home Medications ?Medication ?Instructions ?Recorded ?Confirmed acetaminophen 500 mg capsule 1,000 mg PO Q6H PRN 12/17/23 04/13/25 apixaban 5 mg tablet (Eliquis) 5 mg PO Q12H 12/17/23 04/13/25 atorvastatin 20 mg tablet 20 mg PO DAILY 12/17/23 04/13/25 Held on 04/13/25. Instructions: Changed by Provider cholecalciferol (vitamin D3) 25 25 mcg PO DAILY 12/17/23 04/13/25 mcg (1,000 unit) capsule empagliflozin 25 mg tablet 25 mg PO DAILY 12/17/23 04/13/25 pantoprazole 40 mg tablet,delayed 40 mg PO QAM 12/17/23 04/13/25 release propranolol 80 mg tablet 40 mg PO DAILY 12/17/23 04/13/25 fluoxetine 10 mg capsule 10 mg PO DAILY 04/13/25 04/13/25 isavuconazonium sulfate 186 mg 186 mg PO DAILY 04/13/25 04/13/25 capsule magnesium oxide 400 mg PO DAILY 04/13/25 04/13/25 semaglutide 2 mg/dose (8 mg/3 mL) 2 mg subcut QWEEK 04/13/25 04/13/25 subcutaneous pen injector (Ozempic) sildenafil 50 mg tablet (Viagra) 50 mg PO DAILY PRN 04/13/25 04/13/25 tamsulosin 0.4 mg capsule 0.4 mg PO DAILY 04/13/25 04/13/25 tiotropium bromide 2.5 2 inh inhalation DAILY 04/13/25 04/13/25 mcg/actuation mist for inhalation Allergies Allergy/AdvReac Type Severity Reaction Status Date / Time No Known Allergies Allergy Verified 04/13/25 10:32 General Stated Complaint: GenMedical CK: 3 Review of Systems Narrative: Remainder of review of systems otherwise negative except for as noted in the HPI x 10. Exam Narrative Exam Narrative: General: non-toxic, no respiratory distress, comfortable HEENT: normocephalic, atraumatic, lids and lashes normal, PERRL, EOMI, anicteric sclera, no conjunctival injection, moist oral mucosa Neck: No vertebral tenderness Card: regular rate and rhythm, S1S2, no murmurs, rubs, or gallops Lungs: good air entry, clear to auscultation bilaterally. no wheezes, rales, rhonchi, or retractions Abd: soft, non-tender, non-distended, normal bowel sounds, no rebound or guarding, no peritoneal signs, no CVAT Musculoskeletal: no vertebral tenderness, pelvis stable, right arm in sleeve with bandage below, 2+ radial pulses, full range of motion of arms and legs, no tenderness to palpation. no clubbing, cyanosis, or edema Neurologic: GSC 15, CN 2-12 intact bilaterally, speech normal, strength normal, sensation intact distally in all four extremities, 2+ biceps tendon reflexes, normal finger to nose, normal rapid alternating movements, no pronator drift Psych: alert and oriented Skin: As above, otherwise no petechiae, no lesions, warm and dry Course Vital Signs Vital signs: Vital Signs Temperature 36.8 C 04/13/25 10:27 Pulse 79 04/13/25 10:27 Respiratory Rate 16 04/13/25 10:27 Blood Pressure 120/73 04/13/25 10:27 Pulse Oximetry 95 04/13/25 10:27 Temperature 36.8 C 04/13/25 10:27 Temperature Source Oral 04/13/25 10:27 Pulse 79 04/13/25 10:27 Respiratory Rate 16 04/13/25 10:27 Respiratory Effort Normal 04/13/25 10:58 Blood Pressure 120/73 04/13/25 10:27 Blood Pressure Position Sitting 04/13/25 10:27 Pulse Oximetry 95 04/13/25 10:27 Oxygen Delivery Method Room Air 04/13/25 10:27 Oxygen Flow Rate 0 04/13/25 10:27 Pain Level 0 04/13/25 10:27 Medical Decision Making 74-year-old male with history of atrial fibrillation on Eliquis presents for evaluation of gross hematuria after a fall yesterday. Clinically I do not see any signs of outward bruising. Patient and did not want me to take sleeving bandage off to look at wound on his right arm. Will check laboratory studies, UA, CT head and abdomen pelvis. CT head unremarkable. CT abdomen pelvis shows bilateral kidney stones that are nonobstructing. There is possible hemorrhagic kidney cyst. Patient's hematuria is decreasing during his ED stay. He remains pain-free and neurologically intact. His laboratory studies today show mildly low platelets. He does have known history of cirrhosis. He does not currently have a urologist. His last kidney stone was many years ago. I have recommended follow-up with his doctor as well as with a urologist. We have discussed indications to return including fevers, pain, lightheadedness, dizziness, chest pain, shortness of breath. PFSH All Active Problems (Updated 04/13/25 @ 14:38 by Bernie Robin MD) Kidney stones (Chronic) Fall (Acute) Hematuria (Acute) Social History Smoking/Tobacco Use Status: Former Tobacco Use Quit Date: 09/15/84 Tobacco: How many years used: 25 Smoking risk assessment performed?: Yes Alcohol Intake: current Alcohol Intake frequency: 0-2 drinks per day Alcohol type: beer Substance use type: does not use Housing: house Do you feel safe at home: Yes Do you feel safe in your relationship?: Yes PAWSS Have you Been Recently Intoxicated or Drunk Within the Last 30 days?: No Have you Ever Experienced Previous Episodes of Alcohol Withdrawal?: No Have you ever Experienced Withdrawal Seizures?: No Have you ever Experienced Delirium Tremens(DT)s?: No Have you ever undergone Alcohol Rehabilitation Treatment (i.e, inpt ot outpatient treatment programs)?: No Have you ever Experienced Blackouts?: No Have you ever Combined Alcohol with other Downers within the last 90 days?: No Have you ever Combined Alcohol with any other Substance of Abuse during the last 90 days?: No Positive Blood Alcohol level on Presentation? [PCS.BAL]: No Evidence of Increased Autonomic Activity (i.e. HR>120, tremor, sweating, agitation, nausea)?: No Result: 0
[2025-04-13 13:07] LABS: Abs Immature Grans 0.02 10^3/uL (0.0-0.06); HCT 40.0 % (40.0-50.0); HGB 14.2 g/dL (13.5-17.5); Immature Grans % 0.5 %; MCH 36.7 pg (27.0-33.0); MCHC 35.5 % (32.0-36.0); MCV 103 fL (80-95); MPV 10.2 fL (8.0-11.0); Platelet Count 107 10^3/uL (130-400); RBC 3.87 10^6/uL (4.36-5.78); RDW 12.7 % (11.8-14.1); RDW-SD 47.6 fL; WBC 3.73 10^3/uL (4.4-10.8)
[2025-04-13 13:08] LABS: ALT 34 U/L (16-63); AST 25 U/L (15-37); Albumin 2.9 g/dL (3.4-5.0); Alkaline Phosphatase 144 U/L (46-116); Anion Gap 9.1 mmol/L (3-11); BUN 16 mg/dL (7-18); Bilirubin, Total 0.9 mg/dL (0.2-1.0); CO2 24.9 mmol/L (21.0-32.0); Calcium 8.5 mg/dL (8.5-10.1); Chloride 107 mmol/L (98-107); Estimated GFR 69.57 (mL/min/1.73m2); Glucose 256 mg/dL (74-106); Potassium 4.4 mmol/L (3.5-5.1); Sodium 141 mmol/L (136-145); Total Protein 5.9 g/dL (6.4-8.2)
[2025-04-13 13:11] LABS: Glucose 500 mg/dL (Negative)
[2025-04-13 13:38] LABS: RBC >50 HPF (0-2); WBC 0-2 HPF (0-5)
[2025-04-13 13:39] LABS: C & S Indicated? No
== END 2025-04-13 15:39 | disposition home or self-care (01) ==
PROVIDERS: Emergency Provider Emergency Medicine Emergency Medical Services; PCP Physician Assistant
DX: R31.9 Hematuria, unspecified (principal); N20.0 Calculus of kidney; I48.91 Unspecified atrial fibrillation; Z79.01 Long term (current) use of anticoagulants; Z87.891 Personal history of nicotine dependence; Z79.899 Other long term (current) drug therapy
CPT/HCPCS: 36415; 80053; 99284; 70450; 74176; 81003; 81015; 85025

== ENCOUNTER 2025-04-14 14:15 | Outpatient (CLI) | payer OTHER, SELFPAY ==
--- NOTE | 2025-04-14 14:00 | DI.RAD_ITS ---
Exam(s) XR KNEE RT 2V AP,LAT XR KNEE LT 3V AP,LAT,CHANELLE XR STANDING ALIGNMENT EXAM: XR STANDING ALIGNMENT CLINICAL HISTORY: LEFT KNEE PAIN. TECHNIQUE: 2D digital imaging was performed. Standing AP views were performed from the pelvis through the ankles. AP and lateral views of both knees. COMPARISON: CR XR KNEE RT 2V AP,LAT from 04/14/2025 CR XR KNEE LT 3V AP,LAT,CHANELLE from 04/14/2025 FINDINGS: BONES: No acute fracture is present. No bony destructive lesion is seen. Leg length discrepancy: Minimal overall leg length discrepancy, with the left femoral head projecting 5 millimeters superior to the right. JOINTS: Knees: Left: There is severe narrowing of the medial femoral tibial joint space of the left knee, with a [id number] appearance. There is prominent periarticular spurring. This causes varus angulation. There is spurring at the tibial spines and femoral intercondylar notch. The patellofemoral joint and lateral femoral tibial joint spaces are maintained and show mild periarticular spurring. Right: A total knee prosthesis is in place which shows satisfactory alignment. No joint effusion. The ankle joints are unremarkable. The hip joints are not well seen due to under penetration. The joint spaces are grossly maintained. SOFT TISSUE: Ovoid bony densities seen in the posterior knee which could represent loose bodies within a Chan's cyst. Vascular calcifications. IMPRESSION: Severe degenerative changes of the left knee.. Unremarkable right total knee prosthesis Minimal overall leg length discrepancy. DATA REPOSITORY: RADIATION DOSE DELIVERED:
== END 2025-04-14 14:16 | disposition home or self-care (01) ==
LOC: DIORS 14:15
PROVIDERS: PCP Physician Assistant; Visit Provider Physician Assistant
DX: M25.562 Pain in left knee (principal); M25.561 Pain in right knee; Z96.651 Presence of right artificial knee joint; M17.12 Unilateral primary osteoarthritis, left knee
CPT/HCPCS: 73562; 73560; 77073

== ENCOUNTER 2025-05-31 16:07 | Inpatient (IN) | payer OTHER, SELFPAY ==
[2025-05-31] VITALS (30 sets, daily range): BP systolic 116–131; BP diastolic 51–84; PULSE 79–117; RESP 11–20; TEMP 36.8–37.2; O2SAT 90–96
--- NOTE | 2025-05-31 16:15 | RT.EKG_ITS ---
APPROVED REPORT Exam: Resting ECG Reason for Exam: irregular HR Patient Location: E HR:86 bpm ECG Measurements Heart Rate 86 AXIS SD 87 P 0 QRSd 94 QRS 62 QT 393 T -41 QTc 471 Conclusion Atrial fibrillation, rate 86 No interval abnormalities No STEMI T wave inversion lead III, aVF, V3-V6 unchanged from prior
--- NOTE | 2025-05-31 16:30 | DI.CT_ITS ---
Exam(s) CT HEAD WO EXAM: CT HEAD WO CLINICAL HISTORY: weakness, on thinners. TECHNIQUE: Imaging Protocol: Axial computed tomography images with coronal and sagittal reformatted images were created and reviewed COMPARISON: CT CT BRAIN NECK CTA from 05/06/[address] HEAD WO from 04/13/2025 FINDINGS: There are no skull fractures. There is no fluid in the visualized paranasal sinuses. There is no evidence of intracranial hemorrhage, mass effect, or shift of midline structures. There are no extra-axial fluid collections. The ventricles are not enlarged or shifted and there is no blood within the ventricular system nor within the basal cisterns. There is mild bilateral periventricular hypodensity consistent with chronic small vessel disease, unchanged from 04/13/2025. zx there is a calcified meningeal based structure in the high left convexity parietal region which measures 8 by 4 by 7 mm, unchanged. This probably a small meningioma. There is no surrounding brain edema IMPRESSION: No acute intracranial findings on this noninfused CT scan of the brain. Small probable calcified meningioma in the high left parietal region is unchanged from prior CT scans of 05/06/2024 and 04/13/2025. Report called by myself to ER physician 05/31/2025 at 7:14 p.m. RADIATION DOSE DELIVERED: 900.75mGy.cm Total DLP DATA REPOSITORY: All CT scans at this facility are submitted to the National Radiology Data Registry (NRDR) Dose Index Registry (DIR) with the [employer] ([employer]). RADIATION OPTIMIZATION: All CT scans at this facility use at least one of these dose optimization techniques: automated exposure control; mA and/or kV adjustment per patient size (includes targeted exams where dose is matched to clinical indication); or iterative reconstruction.
--- NOTE | 2025-05-31 16:30 | DI.RAD_ITS ---
Exam(s) XR PORTABLE CHEST AP EXAM: XR PORTABLE CHEST AP CLINICAL HISTORY: hx blastomycosis, eval PNA. TECHNIQUE: 2D digital imaging was performed. COMPARISON: CT CT CHEST WO from 12/12/2023 CR XR CHEST 2V PA LATERAL from 05/06/2024 FINDINGS: Single AP portable view. Heart size is upper normal. The mediastinum is not widened. There is mild infiltrate in the right upper lobe, less than on the previous study listed above. There was previously a thick-walled cavitated lesion at this level on CT scan of the chest performed 12/12/2023. No other pulmonary findings. No obvious pleural effusions. IMPRESSION: As above. Right upper lobe increased markings are most probably scarring related to the previously present large cavitated lesion seen at this location on CT scan of November 2023. Correlation with interval medical treatment or resection history recommended. No new significant focal pulmonary findings evident. Given the past history here if clinically indicated follow-up chest CT scan can be performed. DATA REPOSITORY: RADIATION DOSE DELIVERED:
[2025-05-31 16:51] LABS: Abs Immature Grans 0.01 10^3/uL (0.0-0.06); HCT 41.1 % (40.0-50.0); HGB 14.7 g/dL (13.5-17.5); Immature Grans % 0.3 %; MCH 36.7 pg (27.0-33.0); MCHC 35.8 % (32.0-36.0); MCV 103 fL (80-95); MPV 10.0 fL (8.0-11.0); Platelet Count 112 10^3/uL (130-400); RBC 4.01 10^6/uL (4.36-5.78); RDW 14.0 % (11.8-14.1); RDW-SD 53.1 fL; WBC 3.69 10^3/uL (4.4-10.8)
--- NOTE | 2025-05-31 17:01 | W.ED.GENAD ---
Discharge Plan Disposition Patient Disposition: Admit to [facility] Condition: Stable Discharge Details Clinical Impression: Acute hepatic encephalopathy, Cirrhosis Admit Date/Time: 05/31/25 20:39 Admit Provider: Jas James Attending Provider: Jas James Primary Care Provider: Petrona Wynne ED Provider: Latonia Wyatt Discharge Data Discharge Date/Time-TO BE ENTERED AT DEPARTURE: 05/31/25 22:20 HPI General Mode of arrival: ambulatory. Date/Time Provider Initiated Documentation: 05/31/25 16:13. Limitations to Documentation: altered mental status. Information obtained by: patient, family and old records reviewed. HPI Narrative: This is a 74-year-old male patient with a past medical history significant for atrial fibrillation on Eliquis, history of cirrhosis, diabetes, presenting for evaluation of generalized weakness and delirium. The patient's provides the majority of the history, stating that when he woke up this morning he thought that the handrails on his bed were a rifle. The patient's states that he has not been this confused for several weeks, and endorses compliance with his home lactulose. He has not sustained any trauma or injuries, does not have a fever, cough, or pain when he pees. He has been passing stool normally. He was brought in today because his home PT visit found him to be profoundly weak, requiring two-person assist to stand up, which is not his baseline. The patient reports that he is not experiencing any pain, states that he is speaking quite slow, seems to have difficulty finding his words. Related Data Home Medications ?Medication ?Instructions ?Recorded ?Confirmed acetaminophen 500 mg capsule 1,000 mg PO Q6H PRN 12/17/23 05/31/25 apixaban 5 mg tablet (Eliquis) 5 mg PO Q12H 12/17/23 05/31/25 atorvastatin 20 mg tablet 20 mg PO DAILY 12/17/23 05/31/25 Held on 04/13/25. Instructions: Changed by Provider cholecalciferol (vitamin D3) 25 25 mcg PO DAILY 12/17/23 05/31/25 mcg (1,000 unit) capsule empagliflozin 25 mg tablet 25 mg PO DAILY 12/17/23 05/31/25 pantoprazole 40 mg tablet,delayed 40 mg PO QAM 12/17/23 05/31/25 release propranolol 80 mg tablet 40 mg PO DAILY 12/17/23 05/31/25 fluoxetine 10 mg capsule 10 mg PO DAILY 04/13/25 05/31/25 isavuconazonium sulfate 186 mg 186 mg PO DAILY 04/13/25 05/31/25 capsule magnesium oxide 400 mg PO DAILY 04/13/25 05/31/25 semaglutide 2 mg/dose (8 mg/3 mL) 2 mg subcut QWEEK 04/13/25 05/31/25 subcutaneous pen injector (Ozempic) sildenafil 50 mg tablet (Viagra) 50 mg PO DAILY PRN 04/13/25 05/31/25 tamsulosin 0.4 mg capsule 0.4 mg PO DAILY 04/13/25 05/31/25 tiotropium bromide 2.5 2 inh inhalation DAILY 04/13/25 05/31/25 mcg/actuation mist for inhalation cyanocobalamin (vitamin B-12) 1,000 mcg PO DAILY 04/14/25 05/31/25 1,000 mcg capsule rifaximin 550 mg tablet 550 mg PO BID 04/14/25 05/31/25 diclofenac sodium 1 % topical gel 2 g topical QID 05/31/25 05/31/25 lidocaine 5 % topical patch 3 patch topical DAILY 05/31/25 05/31/25 Allergies Allergy/AdvReac Type Severity Reaction Status Date / Time No Known Allergies Allergy Verified 05/31/25 21:43 General Stated Complaint: GenMedical CK: 3 Exam Narrative Exam Narrative: Gen: awake and alert, in no apparent distress. Appears well nourished. HEENT: PERRL, EOMs full. External ears and nose normal, mucous membranes moist. Neck: Supple, full range of motion, no observable masses Lungs: No increased work of breathing, lung sounds clear and equal bilaterally without wheezes, rhonchi, or rales. CV: Heart with regular rate and rhythm, no murmurs auscultated. Strong and symmetrical radial pulses. Abdomen: Soft, nondistended, non-tender to palpation. No rigidity, rebound tenderness, or guarding. MSK: No joint swelling, no redness. Full ROM without limitation, no external traumatic findings. 1+ peripheral edema bilateral lower extremities Skin: No rashes or lesions to visualized skin. Normal color, warm, and dry. Neuro: Cranial nerves II-XII intact and symmetrical bilaterally, though his speech is very slow. 5/5 strength in bilateral upper extremities, 4 out of 5 strength bilateral lowers, small/weak asterixis appreciated to outstretched hands for the patient has difficulty following the command for this exam. Psych: Appropriate for situation. Course Vital Signs Vital signs: Vital Signs Temperature 37.2 C 05/31/25 16:20 Pulse 84 05/31/25 16:20 Respiratory Rate 14 05/31/25 16:20 Blood Pressure 116/51 L 05/31/25 16:20 Pulse Oximetry 94 05/31/25 16:20 Temperature 37.2 C 05/31/25 16:45 Temperature Source Tympanic 05/31/25 16:45 Pulse 84 05/31/25 16:45 Respiratory Rate 14 05/31/25 16:45 Blood Pressure 116/51 L 05/31/25 16:45 Blood Pressure Position Sitting 05/31/25 16:45 Pulse Oximetry 94 05/31/25 16:45 Oxygen Delivery Method Room Air 05/31/25 16:45 Oxygen Flow Rate 0 05/31/25 16:45 Pain Level 0 05/31/25 16:45 Lab/Test Results Lab/Test Results: Laboratory Tests Range/Units 05/31/25 16:40 WBC (4.4-10.8) 10^3/uL 3.69 L RBC (4.36-5.78) 10^6/uL 4.01 L Hgb (13.5-17.5) g/dL 14.7 Hct (40.0-50.0) % 41.1 MCV (80-95) fL 103 H MCH (27.0-33.0) pg 36.7 H MCHC (32.0-36.0) % 35.8 RDW (11.8-14.1) % 14.0 Plt Count (130-400) 10^3/uL 112 L MPV (8.0-11.0) fL 10.0 Immature Gran % % 0.3 Neutrophils % % 46.6 Lymphocytes % % 40.7 Monocytes % % 10.0 Eosinophils % % 1.6 Basophils % % 0.8 Nucleated RBC % (0.0-0.3) % 0.0 Absolute Neutrophils (1.2-6.7) 10^3/uL 1.72 Absolute Lymphocytes (1.2-3.4) 10^3/uL 1.50 Absolute Monocytes (0.1-0.8) 10^3/uL 0.37 Absolute Eosinophils (0.0-0.7) 10^3/uL 0.06 Absolute Basophils (0.0-0.2) 10^3/uL 0.03 Medical Decision Making This is a 74-year-old male patient presenting for evaluation of altered mental status. My differential includes but is not limited to hepatic encephalopathy, intracranial hemorrhage, stroke, mass effect. Considered metabolic electrolyte derangement including kidney injury, liver failure, anemia. No reported bloody stool or hematemesis to suggest GI bleed, no distention of the abdomen or abdominal pain to increase my concern for SBP. The patient has no reported active substance use or withdrawal syndromes though intoxication and withdrawal were considered. Full range of motion of the neck making meningitis less likely, but did consider infectious pathologies including pneumonia, urinary tract infection. I obtained an EKG which shows a sinus rhythm with frequent PACs, no STEMI, diffuse T wave abnormalities which are not changed from priors. We will obtain a head CT, chest x-ray, and labs to include CBC, CMP, magnesium, troponin, ammonia, INR, and urinalysis. -I independently interpreted the laboratory studies, which show no significant leukocytosis, anemia, or thrombocytopenia. The chemistry panel is without evidence of electrolyte abnormality, kidney dysfunction, or liver injury. INR 1.2 which is within the range of baseline for this patient. Ammonia quite elevated at 174 without priors available for comparison. Troponin is normal, and urinalysis is noninfectious. UDS was obtained and negative, CT scan reviewed by myself and shows no acute abnormalities to explain the patient's change in symptoms. Chest x-ray without focal consolidations, though the patient does have scarring from a prior cavitary lesion. Given the patient's alteration in mental status, and his profound weakness preventing safe discharge I reached out to the hospitalist who is graciously accepted this patient for admission to their service for further management of his presumed hepatic encephalopathy. The patient remained hemodynamically appropriate while under my care was transferred from our department without incident. Latonia Wyatt MD Medical Records Medical records reviewed: Yes I reviewed the patient's medical records. Lab Data Lab results reviewed: Yes I reviewed the patient's lab results. [facility] All Active Problems (Updated 06/01/25 @ 00:20 by Latonia Wyatt MD) Acute hepatic encephalopathy (Acute) BPH (benign prostatic hyperplasia) (Chronic) MDD (major depressive disorder) (Chronic) Dyslipidemia (Acute) Afib (Chronic) Diabetes (Chronic) COPD (chronic obstructive pulmonary disease) (Chronic) Cavitating mass in right upper lung lobe (Acute) Elevated MCV (Acute) Cirrhosis (Acute) Encephalopathy (Acute) S/P total knee arthroplasty (Acute) RIGHT Osteoarthritis of left knee (Acute) Social History Smoking/Tobacco Use Status: Former Tobacco Use Quit Date: 09/15/84 Tobacco: How many years used: 25 Smoking risk assessment performed?: Yes Alcohol Intake: current Alcohol Intake frequency: 0-2 drinks per day Alcohol type: beer Substance use type: does not use Housing: house Do you feel safe at home: Yes Do you feel safe in your relationship?: Yes
[2025-05-31 17:05] LABS: Ammonia 174 umol/L (11-32); INR 1.2 (0.9-1.1); Prothrombin Time 11.9 sec (9.1-11.1)
[2025-05-31 17:15] LABS: Glucose >=1000 mg/dL (Negative)
[2025-05-31 17:15] LABS: ALT 45 U/L (16-63); AST 28 U/L (15-37); Albumin 3.0 g/dL (3.4-5.0); Alkaline Phosphatase 116 U/L (46-116); Anion Gap 9.0 mmol/L (3-11); BUN 14 mg/dL (7-18); Bilirubin, Total 1.2 mg/dL (0.2-1.0); CO2 25.0 mmol/L (21.0-32.0); Calcium 8.5 mg/dL (8.5-10.1); Chloride 107 mmol/L (98-107); Estimated GFR 78.00 (mL/min/1.73m2); Glucose 158 mg/dL (74-106); Magnesium 1.8 mg/dL (1.8-2.4); Potassium 4.1 mmol/L (3.5-5.1); Sodium 141 mmol/L (136-145); Total Protein 6.1 g/dL (6.4-8.2); Troponin I 13 ng/L (<or=76)
[2025-05-31 17:25] LABS: C & S Indicated? No; RBC Negative HPF (0-2); WBC 0-2 HPF (0-5)
[2025-05-31 18:01] LABS: NT-proBNP 94 pg/mL (<300)
[2025-05-31 18:35] LABS: Troponin I 12 ng/L (<or=76)
[2025-05-31 20:40] LABS: Cannabinoids THC Negative (Negative); METHADONE URINE SCREEN Negative (Negative)
--- NOTE | 2025-05-31 20:43 | W.PM.HP.N ---
Date of service: 05/31/25 Time of Service: 20:43 Assessment and Plan Assessment and plan (1) Encephalopathy: Status: Acute Assessment and plan: Exact reason for the exacerbation is unknown. Will continue with rifaximin and lactulose recheck ammonia in the morning. Would recommend getting further records from the [place] specifically considering his last admission. (2) Cirrhosis: Status: Acute Assessment and plan: Family attributes this to his service. States that he does not drink alcohol on a regular basis. Once again the exact etiology is unknown and would recommend further workup try to access records from his last admission to the [place]. (3) Elevated MCV: Status: Acute Assessment and plan: Will check B12 and folate iron and TIBC. B12 and folate deficiencies can cause mental confusion. 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 As well as alluded to Dr. Dumont's chest x-ray reading. Patient is on medications that would be consistent with treatment of cavitary lesion. Do not know if this is an diagnosed with tissue or just just. Empirically treated but family states this has been a treatment for 2 years. (5) COPD (chronic obstructive pulmonary disease): Status: Chronic Assessment and plan: This is based on his current medication profile which includes tiotropium. (6) Diabetes: Status: Chronic Assessment and plan: Once again this is based on his medication profile he is on Ozempic as well as Jardiance. Not sure honestly if this is due to diabetic or congestive heart failure. Not sure what the benefit is on treating with both Ozempic and Jardiance. Will need further data a.m. (7) Afib: Status: Chronic Assessment and plan: Patient is on Eliquis as well as propranolol. Currently he is rate controlled. Consider an echocardiogram if 1 has been done recently. I do not see a copy of 1 in our records. (8) Dyslipidemia: Status: Acute Assessment and plan: Continue with atorvastatin 40 mg p.o. nightly (9) MDD (major depressive disorder): Status: Chronic Assessment and plan: Continue with Prozac as scheduled (10) BPH (benign prostatic hyperplasia): Status: Chronic Assessment and plan: Continue Flomax as scheduled. History of Present Illness History of Present Illness Chief Complaint: encephalopathy Narrative: Mr Ortega is a 74-year-old gentleman who was recently admitted to the [facility] for worsening encephalopathy. This was approximately 3 weeks ago and he stated about 1 week there. Patient was discharged on lactulose and he is also on rifaximin. Patient woke up this morning significantly more confused and was brought into the ED for further evaluation and treatment by his . states that the patient been taking his medication as prescribed and has not used any alcohol. 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 Workup in the ED did not indicate any signs and sources of infection. Reviewing his labs he does have an elevated MCV and a mildly elevated total bili. Patient's INR is 1.2 which is mildly elevated. Chest x-ray does not indicate any source of infection CT of the head was essentially Benign. He did have an elevated ammonia level 174. Patient will be admitted to the hospital service for further evaluation treatment. Of note the patient is also on Eliquis for A-fib which makes a safe discharge problematic. Review of Systems All systems reviewed & are unremarkable except as noted in HPI and below PFSH All Active Problems (Updated 05/31/25 @ 20:51 by Jas James MD) BPH (benign prostatic hyperplasia) (Chronic) MDD (major depressive disorder) (Chronic) Dyslipidemia (Acute) Afib (Chronic) Diabetes (Chronic) COPD (chronic obstructive pulmonary disease) (Chronic) Cavitating mass in right upper lung lobe (Acute) Elevated MCV (Acute) Cirrhosis (Acute) Encephalopathy (Acute) S/P total knee arthroplasty (Acute) RIGHT Osteoarthritis of left knee (Acute) Social History Smoking/Tobacco Use Status: Former Tobacco Use Quit Date: 09/15/84 Tobacco: How many years used: 25 Smoking risk assessment performed?: Yes Alcohol Intake: current Alcohol Intake frequency: 0-2 drinks per day Alcohol type: beer Substance use type: does not use Housing: house Do you feel safe at home: Yes Do you feel safe in your relationship?: Yes Meds Allergies and Home Medications Allergies Allergy/AdvReac Type Severity Reaction Status Date / Time No Known Allergies Allergy Verified 04/14/25 13:38 Home Medications ?Medication ?Instructions ?Recorded ?Confirmed ?Type acetaminophen 500 mg capsule 1,000 mg PO Q6H PRN 12/17/23 04/14/25 History apixaban 5 mg tablet (Eliquis) 5 mg PO Q12H 12/17/23 04/14/25 History atorvastatin 20 mg tablet 20 mg PO DAILY 12/17/23 04/14/25 History Held on 04/13/25. Instructions: Changed by Provider cholecalciferol (vitamin D3) 25 25 mcg PO DAILY 12/17/23 04/14/25 History mcg (1,000 unit) capsule empagliflozin 25 mg tablet 25 mg PO DAILY 12/17/23 04/14/25 History pantoprazole 40 mg tablet,delayed 40 mg PO QAM 12/17/23 04/14/25 History release propranolol 80 mg tablet 40 mg PO DAILY 12/17/23 04/14/25 History fluoxetine 10 mg capsule 10 mg PO DAILY 04/13/25 04/14/25 History isavuconazonium sulfate 186 mg 186 mg PO DAILY 04/13/25 04/14/25 History capsule magnesium oxide 400 mg PO DAILY 04/13/25 04/14/25 History semaglutide 2 mg/dose (8 mg/3 mL) 2 mg subcut QWEEK 04/13/25 04/14/25 History subcutaneous pen injector (Ozempic) sildenafil 50 mg tablet (Viagra) 50 mg PO DAILY PRN 04/13/25 04/14/25 History tamsulosin 0.4 mg capsule 0.4 mg PO DAILY 04/13/25 04/14/25 History tiotropium bromide 2.5 2 inh inhalation DAILY 04/13/25 04/14/25 History mcg/actuation mist for inhalation cyanocobalamin (vitamin B-12) 1,000 mcg PO DAILY 04/14/25 04/14/25 History 1,000 mcg capsule rifaximin 550 mg tablet 550 mg PO BID 04/14/25 04/14/25 History Exam Narrative Exam Narrative: HEENT-normocephalic atraumatic mucous membranes moist extract motions are intact no horizontal nystagmus Neck-no lymphadenopathy no JVD no thyromegaly Cardiovascular-regular rate and rhythm no murmur rubs gallops but distant Pulmonary-clear to auscultation bilaterally with good air exchange no accessory muscle use speaking in complete sentences Abdomen-protuberant no tenderness to palpate all 4 quadrants Extremities-no sinus clubbing or edema bilaterally Neurologic-cranial nerves II through XII intact as tested he does have some bilateral upper extremity asterixis no Psych-he is alert he is oriented to person place and time. Patient knows who the president is. He cannot do simple math such as subtraction. Results Labs 05/31/25 16:40 05/31/25 16:40 Labs: Laboratory Results - last 24 hr 05/31/25 05/31/25 05/31/25 16:40 17:07 17:57 WBC 3.69 L RBC 4.01 L Hgb 14.7 Hct 41.1 MCV 103 H MCH 36.7 H MCHC 35.8 RDW 14.0 Plt Count 112 L MPV 10.0 Immature Gran % 0.3 Neutrophils % 46.6 Lymphocytes % 40.7 Monocytes % 10.0 Eosinophils % 1.6 Basophils % 0.8 Nucleated RBC % 0.0 Absolute Neutrophils 1.72 Absolute Lymphocytes 1.50 Absolute Monocytes 0.37 Absolute Eosinophils 0.06 Absolute Basophils 0.03 PT 11.9 H INR 1.2 H Sodium 141 Potassium 4.1 Chloride 107 Carbon Dioxide 25.0 Anion Gap 9.0 BUN 14 Creatinine 1.0 Est GFR (CKD-EPI 2020) 78.00 Glucose 158 H Calcium 8.5 Magnesium 1.8 Total Bilirubin 1.2 H AST 28 ALT 45 Alkaline Phosphatase 116 Ammonia 174 H Troponin I 13 12 NT-Pro-B Natriuret Pep 94 Total Protein 6.1 L Albumin 3.0 L Urine Color Yellow Urine Clarity Clear Urine pH 6.0 Ur Specific [place] 1.015 Urine Protein Negative Urine Ketones Negative Urine Blood Negative Urine Nitrite Negative Urine Bilirubin Negative Urine Urobilinogen 2.0 H Ur Leukocyte Esterase Negative Urine RBC Negative Urine WBC 0-2 Ur Epithelial Cells Negative Urine Crystals Negative Urine Bacteria Rare Urine Casts Negative Urine Mucus Negative Ur Culture Indicated? No Urine Glucose >=1000 H Urine Opiates Screen Negative Urine Methadone Screen Negative Ur Barbiturates Screen Negative Ur Tricyclics Screen Negative Ur Amphetamines Screen Negative U Benzodiazepines Scrn Negative Urine Cocaine Screen Negative Ur THC Screen Negative 05/31/25 19:35 WBC RBC Hgb Hct MCV MCH MCHC RDW Plt Count MPV Immature Gran % Neutrophils % Lymphocytes % Monocytes % Eosinophils % Basophils % Nucleated RBC % Absolute Neutrophils Absolute Lymphocytes Absolute Monocytes Absolute Eosinophils Absolute Basophils PT INR Sodium Potassium Chloride Carbon Dioxide Anion Gap BUN Creatinine Est GFR (CKD-EPI 2020) Glucose Calcium Magnesium Total Bilirubin AST ALT Alkaline Phosphatase Ammonia Troponin I Cancelled NT-Pro-B Natriuret Pep Total Protein Albumin Urine Color Urine Clarity Urine pH Ur Specific [place] Urine Protein Urine Ketones Urine Blood Urine Nitrite Urine Bilirubin Urine Urobilinogen Ur Leukocyte Esterase Urine RBC Urine WBC Ur Epithelial Cells Urine Crystals Urine Bacteria Urine Casts Urine Mucus Ur Culture Indicated? Urine Glucose Urine Opiates Screen Urine Methadone Screen Ur Barbiturates Screen Ur Tricyclics Screen Ur Amphetamines Screen U Benzodiazepines Scrn Urine Cocaine Screen Ur THC Screen Last Vital Signs Temp 37.2 C 05/31/25 16:45 Pulse 100 H 05/31/25 20:00 Resp 16 05/31/25 20:20 BP 116/51 L 05/31/25 16:45 Pulse Ox 95 05/31/25 20:00 Time Spent Time spent with Patient: 55-74 minutes Time was spent: preparing to see the patient(eg.review tests), obtaining and/or reviewing separately otained hiistory, ordering medications,tests, procedures, referring, communicating with other health career development coordinator, indepentently interpreting results, counseling the patient and care coordination
--- NOTE | 2025-05-31 21:58 | W.PC.ACHO ---
Registration Status: REG ER Primary Language: Preferred Language: ED Information & Data Chief Complaint GenMedical 05/31/25 17:01 Triage Note Patient here with 05/31/25 16:20 generalized total body weakness for approx one week . no SOB, CP, CARLSON, or urinary problems. Bowels okay. Most Recent Vital Signs Temperature 37.2 C 05/31/25 16:45 Temperature Source Tympanic 05/31/25 16:45 Pulse 100 H 05/31/25 20:00 Pulse 95 H 05/31/25 20:20 Respiratory Rate 16 05/31/25 20:20 Respiratory Effort Normal 05/31/25 17:10 Respiratory Depth Normal 05/31/25 17:10 Respiratory Pattern Normal 05/31/25 17:10 Blood Pressure 116/51 L 05/31/25 16:45 Blood Pressure Mean 48 05/31/25 16:32 Blood Pressure Position Sitting 05/31/25 16:45 Pulse Oximetry 95 05/31/25 20:00 Oxygen Delivery Method Room Air 05/31/25 16:45 Oxygen Flow Rate 0 05/31/25 16:45 Pain Level 0 05/31/25 16:45 Allergies No Known Allergies Allergy (Verified 05/31/25 21:43) IV IV Catheter Type [Right Saline Lock Forearm] IV Catheter Gauge [Right 18 Forearm] Diet Orders Category Date Time Status Regular/Normal [DIET] Nutrition 06/01/25 Breakfast Ordered Diagnostics 05/31/25 05/31/25 05/31/25 Range/Units 19:35 17:57 17:07 WBC (4.4-10.8) 10^3/uL RBC (4.36-5.78) 10^6/uL Hgb (13.5-17.5) g/dL Hct (40.0-50.0) % MCV (80-95) fL MCH (27.0-33.0) pg MCHC (32.0-36.0) % RDW (11.8-14.1) % Plt Count (130-400) 10^3/uL MPV (8.0-11.0) fL Immature Gran % % Neutrophils % % Lymphocytes % % Monocytes % % Eosinophils % % Basophils % % Nucleated RBC % (0.0-0.3) % Absolute Neutrophils (1.2-6.7) 10^3/uL Absolute Lymphocytes (1.2-3.4) 10^3/uL Absolute Monocytes (0.1-0.8) 10^3/uL Absolute Eosinophils (0.0-0.7) 10^3/uL Absolute Basophils (0.0-0.2) 10^3/uL PT (9.1-11.1) sec INR (0.9-1.1) Sodium (136-145) mmol/L Potassium (3.5-5.1) mmol/L Chloride (98-107) mmol/L Carbon Dioxide (21.0-32.0) mmol/L Anion Gap (3-11) mmol/L BUN (7-18) mg/dL Creatinine (0.70-1.30) mg/dL Est GFR (CKD-EPI 2020) (mL/min/1.73m2) Glucose (74-106) mg/dL Calcium (8.5-10.1) mg/dL Magnesium (1.8-2.4) mg/dL Total Bilirubin (0.2-1.0) mg/dL AST (15-37) U/L ALT (16-63) U/L Alkaline Phosphatase (46-116) U/L Ammonia (11-32) umol/L Troponin I Cancelled 12 (<or=76) ng/L NT-Pro-B Natriuret Pep (<300) pg/mL Total Protein (6.4-8.2) g/dL Albumin (3.4-5.0) g/dL Urine Color Yellow (Yellow) Urine Clarity Clear (Clear) Urine pH 6.0 (5-8) Ur Specific [place] 1.015 (1.005-1.025) Urine Protein Negative (Neg-Trace) mg/dL Urine Ketones Negative (Negative) mg/dL Urine Blood Negative (Negative) Urine Nitrite Negative (Negative) Urine Bilirubin Negative (Negative) Urine Urobilinogen 2.0 H (Up to 0.2) mg/dL Ur Leukocyte Esterase Negative (Negative) Urine RBC Negative (0-2) HPF Urine WBC 0-2 (0-5) HPF Ur Epithelial Cells Negative (Negative) HPF Urine Crystals Negative (Negative) HPF Urine Bacteria Rare (Negative) HPF Urine Casts Negative (Negative) LPF Urine Mucus Negative (Negative) Ur Culture Indicated? No Urine Glucose >=1000 H (Negative) mg/dL Urine Opiates Screen Negative (Negative) Urine Methadone Screen Negative (Negative) Ur Barbiturates Screen Negative (Negative) Ur Tricyclics Screen Negative (Negative) Ur Amphetamines Screen Negative (Negative) U Benzodiazepines Scrn Negative (Negative) Urine Cocaine Screen Negative (Negative) Ur THC Screen Negative (Negative) 05/31/25 Range/Units 16:40 WBC 3.69 L (4.4-10.8) 10^3/uL RBC 4.01 L (4.36-5.78) 10^6/uL Hgb 14.7 (13.5-17.5) g/dL Hct 41.1 (40.0-50.0) % MCV 103 H (80-95) fL MCH 36.7 H (27.0-33.0) pg MCHC 35.8 (32.0-36.0) % RDW 14.0 (11.8-14.1) % Plt Count 112 L (130-400) 10^3/uL MPV 10.0 (8.0-11.0) fL Immature Gran % 0.3 % Neutrophils % 46.6 % Lymphocytes % 40.7 % Monocytes % 10.0 % Eosinophils % 1.6 % Basophils % 0.8 % Nucleated RBC % 0.0 (0.0-0.3) % Absolute Neutrophils 1.72 (1.2-6.7) 10^3/uL Absolute Lymphocytes 1.50 (1.2-3.4) 10^3/uL Absolute Monocytes 0.37 (0.1-0.8) 10^3/uL Absolute Eosinophils 0.06 (0.0-0.7) 10^3/uL Absolute Basophils 0.03 (0.0-0.2) 10^3/uL PT 11.9 H (9.1-11.1) sec INR 1.2 H (0.9-1.1) Sodium 141 (136-145) mmol/L Potassium 4.1 (3.5-5.1) mmol/L Chloride 107 (98-107) mmol/L Carbon Dioxide 25.0 (21.0-32.0) mmol/L Anion Gap 9.0 (3-11) mmol/L BUN 14 (7-18) mg/dL Creatinine 1.0 (0.70-1.30) mg/dL Est GFR (CKD-EPI 2020) 78.00 (mL/min/1.73m2) Glucose 158 H (74-106) mg/dL Calcium 8.5 (8.5-10.1) mg/dL Magnesium 1.8 (1.8-2.4) mg/dL Total Bilirubin 1.2 H (0.2-1.0) mg/dL AST 28 (15-37) U/L ALT 45 (16-63) U/L Alkaline Phosphatase 116 (46-116) U/L Ammonia 174 H (11-32) umol/L Troponin I 13 (<or=76) ng/L NT-Pro-B Natriuret Pep 94 (<300) pg/mL Total Protein 6.1 L (6.4-8.2) g/dL Albumin 3.0 L (3.4-5.0) g/dL Urine Color (Yellow) Urine Clarity (Clear) Urine pH (5-8) Ur Specific [place] (1.005-1.025) Urine Protein (Neg-Trace) mg/dL Urine Ketones (Negative) mg/dL Urine Blood (Negative) Urine Nitrite (Negative) Urine Bilirubin (Negative) Urine Urobilinogen (Up to 0.2) mg/dL Ur Leukocyte Esterase (Negative) Urine RBC (0-2) HPF Urine WBC (0-5) HPF Ur Epithelial Cells (Negative) HPF Urine Crystals (Negative) HPF Urine Bacteria (Negative) HPF Urine Casts (Negative) LPF Urine Mucus (Negative) Ur Culture Indicated? Urine Glucose (Negative) mg/dL Urine Opiates Screen (Negative) Urine Methadone Screen (Negative) Ur Barbiturates Screen (Negative) Ur Tricyclics Screen (Negative) Ur Amphetamines Screen (Negative) U Benzodiazepines Scrn (Negative) Urine Cocaine Screen (Negative) Ur THC Screen (Negative) Intake and Output - 24 Hour Total 05/31/25 16:07 thru 05/31/25 16:20 Weight 120.202 kg Falls Risk Assessment History of Falls Previous History 05/31/25 16:47 Contributing Factors Confusion,Unstable, 05/31/25 16:47 Impairments,Incontinence, Medications Ambulatory Aids Uses ambulatory device + 05/31/25 16:47 Tubes/Lines With any additional score 05/31/25 16:47 Gait Evaluation W/any additional score 05/31/25 16:47 Cognition No cognitive impairment 05/31/25 16:47 Fall Total Score 100 05/31/25 16:47 Level of Risk Maximum Risk 05/31/25 16:47 Problems (Last Reviewed 04/13/25 @ 11:06 by Bernie Robin MD) BPH (benign prostatic hyperplasia) (Chronic) MDD (major depressive disorder) (Chronic) Dyslipidemia (Acute) Afib (Chronic) Diabetes (Chronic) COPD (chronic obstructive pulmonary disease) (Chronic) Cavitating mass in right upper lung lobe (Acute) Elevated MCV (Acute) Cirrhosis (Acute) Encephalopathy (Acute) v v v v v v v v v Sending and/or Receiving Nurses: Please use comment section below to note any information pertinent to the patient hand-off not included above. Information / Comments:Admit to Med/surg rm 226, from ED, w/ severe confusion and weakness. Unable to perform normal ADL's. A&O x 2. Periods of word salad that pass. Large gentlemen, 2 person assist, decreased mobility att. Hx liver issues, ammonia high, taking lactulose. Didn't get am dose per . Report received from:Damon from ICU called @ [phone].
[2025-05-31] MEDS: Acetaminophen 325 MG TAB PO (23:25)
[2025-05-31] MEDS: Normal Saline Flush 10 ML SYR IVP (23:26)
[2025-05-31] MEDS: Apixaban 5 MG TAB PO (23:48)
[2025-06-01 03:05] VITALS: BP 125/68; PULSE 98; RESP 18; TEMP 36.6; O2SAT 92
[2025-06-01 07:02] LABS: Abs Immature Grans 0.00 10^3/uL (0.0-0.06); HCT 40.3 % (40.0-50.0); HGB 14.6 g/dL (13.5-17.5); Immature Grans % 0.0 %; MCH 37.2 pg (27.0-33.0); MCHC 36.2 % (32.0-36.0); MCV 103 fL (80-95); MPV 10.3 fL (8.0-11.0); Platelet Count 114 10^3/uL (130-400); RBC 3.93 10^6/uL (4.36-5.78); RDW 14.1 % (11.8-14.1); RDW-SD 53.9 fL; WBC 3.69 10^3/uL (4.4-10.8)
[2025-06-01 07:05] LABS: Ammonia 140 umol/L (11-32)
[2025-06-01 07:18] LABS: Iron 97 ug/dL (65-175); Total Iron Binding Capacity 217 ug/dL (250-450); Transferrin Sat 45 % (20-55)
[2025-06-01 07:34] LABS: ALT 36 U/L (16-63); AST 23 U/L (15-37); Albumin 2.8 g/dL (3.4-5.0); Alkaline Phosphatase 108 U/L (46-116); Anion Gap 9.4 mmol/L (3-11); BUN 13 mg/dL (7-18); Bilirubin, Total 1.2 mg/dL (0.2-1.0); CO2 24.6 mmol/L (21.0-32.0); Calcium 8.6 mg/dL (8.5-10.1); Chloride 108 mmol/L (98-107); Estimated GFR 78.00 (mL/min/1.73m2); Glucose 134 mg/dL (74-106); Potassium 3.9 mmol/L (3.5-5.1); Sodium 142 mmol/L (136-145); TSH (W/Ref FT4) 1.33 uIU/mL (0.36-3.74); Total Protein 5.7 g/dL (6.4-8.2)
[2025-06-01 07:43] VITALS: BP 129/92; PULSE 95; RESP 16; TEMP 35.5; O2SAT 95
[2025-06-01 07:43] LABS: Folate 17.7 ng/mL (8.6-20.0); Vitamin B12 1269 pg/mL (193-986)
[2025-06-01] MEDS: Normal Saline Flush 10 ML SYR IVP ×2 (08:11→20:22)
[2025-06-01] MEDS: Pantoprazole 40 MG TABCR PO (08:12)
[2025-06-01] MEDS: Apixaban 5 MG TAB PO ×2 (08:12→20:22)
[2025-06-01] MEDS: Cholecalciferol (Vitamin D3) 1,000 UNIT TAB 1000 UNITS PO (08:12)
[2025-06-01] MEDS: Tamsulosin 0.4 MG CAPCR PO (08:13)
[2025-06-01] MEDS: Empaglifozin 25 MG TAB PO (08:14)
[2025-06-01] MEDS: Atorvastatin 20 MG TAB PO (08:14)
[2025-06-01] MEDS: Cyanocobalamin 500 MCG TAB 1000 MCG PO (08:14)
[2025-06-01] MEDS: Rifaximin 550 MG TAB PO ×2 (08:14→20:21)
[2025-06-01] MEDS: Magnesium Oxide 400 MG TAB PO (08:14)
--- NOTE | 2025-06-01 08:49 | PDOC.CMIN ---
Date of service: 06/01/25 Time of Service: 08:49 Care Management Initial Assmt Initial Assessment Reason for Hospitalization: Encephalopathy Functional Status/Living Situation Patient Presentation: Bo appeared to be sleeping comfortably when CM attempted to meet with him. His , Susan, was present at the bedside and provided information for this assessment. Bo lives in [place] with Susan, his of 56 years. They have two children, Casey Gil and Betina, who both live locally and are supportive. Bo is a ,having served in the [employer] and is 90% [place] connected. Susan reported that Bo is beginning to require significant support at home and noted that he uses a wheeled walker with a seat and has difficulty with his memory. His PCP is through the [place] in [place] and he also sees specialists through the [facility] and has been started on new meds. She shared that he needs assistance with feeding and needs to be spoon fed and that he needs help using a urinal, noting that he slept in a wet bed last night. She emphasized that the goal is for Bo to remain at home. She stated that he wouldn't he interested in going to a fci and that he deserves to be home. He is currently receiving [facility] RN/PT services, although Susan states that he is eligible for additional services through the [place], if needed. At this point, she wants to do as much as she can around the house and as a caregiver, but would be open to increased support at home. She plans to return home after dinner once he is all settled in for bed. Town of Residence: [place] Resides with: Spouse ( Susan) Significant Other/Family: Local Caregiver/Guardian: Susan Natural Supports: Daughter Betina and Son Casey Gutierrez Has 10 grandchildren Employment Status: Retired Instrumental Activities of Daily Living (ADLs): Independent Medications Medication Management: No Issues/Barriers identified Physical Functioning/Mobility Assistive Device: Wheeled walker with seat Advance Directives Advance Directives: Do you have an Advance Directive: AD On File at [facility]: N 05/06/23, 15:42 Date Asked 05/31/25 05/31/25, 16:16 AD Date Reviewed COLST On File at [facility] COLST Date Scanned Code Status Resuscitation Status Full Code Portal Pt does not currently have a portal and education provided: Yes Insurance Coverage/Financial Issues [place] [id number] Financial Issues: None identified Care Team Visit Care Team Role Provider Type Dominic Nicole MD [facility] STAFF PHYSICIAN Petrona Wynne Primary Care Provider NON-[facility] STAFF PHYSICIAN InPatient Yuri Garcia Other Providers OTHER Latonia Wyatt MD Emergency Provider [facility] STAFF PHYSICIAN Jas James MD Admit Provider [facility] STAFF PHYSICIAN Attending Provider Discharge Potential Discharge Needs: PCP F/U Appt Anticipated Barriers to Discharge: Medical Status Patient/Family Education Needs: Review discharge instructions, discuss Ask Me Three Transportation: Private vehicle Plan: Anticipate, Bo will discharge home with resumption of H RN/PT via private vehicle with family once medically ready. He follow up with community providers and continue per his discharge plan of care. CM will follow. Social Determinants of Health Screening Will the Patient Participate in the Screening?: Declined to provide Do you worry about having a steady place to live?: choose not to answer PFSH All Active Problems (Updated 06/01/25 @ 16:17 by Dominic Nicole) Acute hepatic encephalopathy (Acute) BPH (benign prostatic hyperplasia) (Chronic) MDD (major depressive disorder) (Chronic) Dyslipidemia (Acute) Afib (Chronic) Diabetes (Chronic) COPD (chronic obstructive pulmonary disease) (Chronic) Cavitating mass in right upper lung lobe (Acute) Elevated MCV (Acute) Cirrhosis (Acute) Encephalopathy (Acute) S/P total knee arthroplasty (Acute) RIGHT Osteoarthritis of left knee (Acute) Social History Smoking/Tobacco Use Status: Former Tobacco Use Quit Date: 09/15/84 Tobacco: How many years used: 25 Smoking risk assessment performed?: Yes Alcohol Intake: current Alcohol Intake frequency: 0-2 drinks per day Alcohol type: beer Substance use type: does not use Housing: house Do you feel safe at home: Yes Do you feel safe in your relationship?: Yes
[2025-06-01] MEDS: Tiotropium Bromide-Respimat 10 PUFF INH 2 PUFF IH (09:26)
[2025-06-01] MEDS: FLUoxetine 10 MG TAB PO (10:05)
[2025-06-01] MEDS: Lactulose 20 GM/30 ML CUP PO ×3 (10:05→20:22)
[2025-06-01 10:48] VITALS: BP 113/83; PULSE 75; RESP 16; TEMP 36.5; O2SAT 91
--- NOTE | 2025-06-01 12:00 | IN_ITS ---
PT Notes Visit Reasons: Encephalopathy Physical Therapy Day Surgery Initial Evaluation Date: 06/01/2025 Referring Doctor: Dr. James PT Orders: PT CONSULT: PT evaluation and treatment Precautions: Fall risk, standard precautions Patient Profile/Admitting Diagnosis: Patient is 74-year-old [facility] and delirium after being found by home PT to require 2 assist for transfers. Workup in the ED included head CT which was negative for acute findings lab work noted elevated ammonia levels patient diagnosed with acute hepatic encephalopathy/cirrhosis. 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 Patient resides on first floor however does have to go to second floor for showers. Patient has bathroom on first floor. Needs assistance with ADLs and is currently receiving home PT services Equipment Owned/DME: Hospital bed, FWW, commode, baby monitor for safety Subjective: Patient states he is feeling a little better but really wants to sleep. reports patient is not back at his baseline but is more alert then he was Objective: [] General Observation: Male semireclined in bed sleeping easily aroused to name. visiting Mental Status: Alert and oriented to person able to answer simple questions. Patient cooperative able to follow simple instructions agreeable to participate in PT evaluation Pain: Left knee with standing unable to use scale it hurts/it is sore ROM: [] Right Upper Extremity: [] WFL Left Upper Extremity: WFL Right Lower Extremity: WFL dorsiflexion to neutral Left Lower Extremity: WFL dorsiflexion to neutral Strength: Impaired motor coordination trunk bilateral upper/lower extremities Right Upper Extremity: Grossly 4/5 Left Upper Extremity: Grossly 4/5 Right Lower Extremity: 3+/5 Left Lower Extremity: 3+/5 Sensation:intact Bed Mobility/Transfers: Supine to sit mod A Sit to stand mod A from 19 height with cues for hand placement Stand to sit min A with cues for hand placement Bed to chair mod A with FWW for FWW management and trunk stability Gait: amb with FWW 25 feet with impaired B foot clearance impaired step length, (+) LOB posteriorly requiring Balance: pt demonstrates no righting or equillibrium reaction/ absent ankle and hip strategies in standing for LOB Static Sitting: Fair - Dynamic Sitting: Poor + Static Standing: Fair with BUE support Dynamic Standing: Poor+ with BUE support Special Tests: [] Mobility Limitations Standardized Measure [] [facility] AM-PAC 6 clicks Basic Mobility Inpatient Short Form: [] Raw Score: 16 CMS Score:54.16% Informed Consent/Education: Patient instructed in purpose of PT consult. Assessment: Patient is a 74 yo male presents with clinical signs and symptoms consistent with current/admitting diagnoses that have resulted to mobility limitations, gait instability, generalized weakness, and impairment of motor control as demonstrated by the following impairment level findings: 1. Decreased strength to BLE major muscle groups 2. Impaired standing balance 3. Limitation of joint range of motion in left knee 4. pain in LLE with WB 5. impaired functional activity tolerance 6. Impaired righting and equilibrium reactions with absent ankle and hip strategies Impairments are contributing to the following functional limitations: 1. Inability to safely ambulate without assistive device 2. Increase completion time for mobility ADL performance 3. Increased fall risk 4. decline in transfer skills 5. decline in bed mobility skills Patient is assessed as a moderate complexity based on the following: History:74-year-old male with impairment level findings, functional limitations, and past medical history as indicated above Examination: Demonstrable impairment in strength, balance, and mobility level with underlying impairments and functional limitations as documented above Presentation:evolving Decision Making: moderate Goals: 1. supervision bed mobility 2. supervision transfers with FWW 3. supervision ambulation with FWW 150 feet level surfaces Plan of Care/Treatment Plan: 1-2x/day, 7 days/week x 1 week. Plan of care has been reviewed with the DIRECTOR PATIENT FINANCIAL SERVICES providing the service under Physical Therapy direction. Initiate Physical Therapy intervention for strengthening, bed mobility, transfers, gait, stairs, balance training, use of assistive device. DISCHARGE RECOMMENDATIONS: Home with Resumption of HHPT when medically appropriate for discharge TREATMENT CODE/TIME: 46489/ [id number] Thank you for the opportunity to participate in the care of this patient. Amy Santos, PT [facility]
[2025-06-01 15:00] VITALS: BP 106/79; PULSE 86; RESP 16; TEMP 36.1; O2SAT 95
--- NOTE | 2025-06-01 16:03 | W.PM.PROGNOT ---
Date of Service Date of service: 06/01/25 Time of Service: 16:05 Assessment and Plan Assessment and plan (1) Encephalopathy: Status: Acute Assessment and plan: Hepatic. CT negative on admission. Exact reason for the exacerbation is unknown but related to decreased stooling. No signs of infection. Will continue with rifaximin and increase lactulose dosing as not at goal 3 loose stool/day. Follow clinically. (2) Cirrhosis: Status: Acute Assessment and plan: Family attributes this to his service. He is certainly at risk for MASLD. Still awaiting records from the [place]. (3) Elevated MCV: Status: Acute Assessment and plan: Normal B12 and folate, no EtOH. Transferrin saturation also normal. High MCV can be seen in cirrhosis. 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 As well as alluded to Dr. Dumont's chest x-ray reading. Patient is on medications that would be consistent with treatment of cavitary lesion. Do not know if this is an diagnosed with tissue or just just. Empirically treated but family states this has been a treatment for 2 years. (5) COPD (chronic obstructive pulmonary disease): Status: Chronic Assessment and plan: Continue tiotropium, not currently exacerbated. (6) Diabetes: Status: Chronic Assessment and plan: Treated on semaglutide and empagliflozin, which is appropirate with obesity. He may be intolerant to metformin. (7) Afib: Status: Chronic Assessment and plan: Patient is on Eliquis as well as propranolol. Currently he is rate controlled. (8) BPH (benign prostatic hyperplasia): Status: Chronic Assessment and plan: Continue Flomax as scheduled. (9) MDD (major depressive disorder): Status: Chronic Assessment and plan: on fluoxetine, which has risk of accumulation with cirrhosis. I don't see signs of serotonin toxicity, so will defer medication change or dose reduction to PCP. Subjective Subjective Patient reports: no new complaints, tolerating a regular diet and shortness of breath; denies nausea, vomiting or fever Interval history since last seen: He feels okay. still not his baseline per his , who is with him today. They aren't sure what the trigger was, but his stooling decreased. He was taking lactulose and Rifaximin and it was working since he was at [facility] in April until now. So far today one formed stool. He confirms no EtOH since 30s. No h/o hepatitis. Exam Narrative Exam Narrative: GEN: Alert, orient to self and hospital, took a while to get town, coaching to give date. No hallucinations Cardiovascular-regular rate and rhythm no murmur rubs gallops but distant Pulmonary-clear to auscultation bilaterally, normal effort. Abdomen-protuberant no tenderness to palpate all 4 quadrants, +fluid wave, but not tensely distented. Extremities-no sinus clubbing or edema bilaterally Neurologic-intact, + asterixis with pressure on extended arms/flexed at wrist Objective Last Vital Signs Temp 36.1 C L 06/01/25 15:00 Pulse 86 06/01/25 15:00 Resp 16 06/01/25 15:00 BP 106/79 06/01/25 15:00 Pulse Ox 95 06/01/25 15:00 Laboratory Results - last 24 hr 05/31/25 05/31/25 05/31/25 16:40 17:07 17:57 WBC 3.69 L RBC 4.01 L Hgb 14.7 Hct 41.1 MCV 103 H MCH 36.7 H MCHC 35.8 RDW 14.0 Plt Count 112 L MPV 10.0 Immature Gran % 0.3 Neutrophils % 46.6 Lymphocytes % 40.7 Monocytes % 10.0 Eosinophils % 1.6 Basophils % 0.8 Nucleated RBC % 0.0 Absolute Neutrophils 1.72 Absolute Lymphocytes 1.50 Absolute Monocytes 0.37 Absolute Eosinophils 0.06 Absolute Basophils 0.03 PT 11.9 H INR 1.2 H Sodium 141 Potassium 4.1 Chloride 107 Carbon Dioxide 25.0 Anion Gap 9.0 BUN 14 Creatinine 1.0 Est GFR (CKD-EPI 2020) 78.00 Glucose 158 H Calcium 8.5 Magnesium 1.8 Iron TIBC Transferrin % Sat Total Bilirubin 1.2 H AST 28 ALT 45 Alkaline Phosphatase 116 Ammonia 174 H Troponin I 13 12 NT-Pro-B Natriuret Pep 94 Total Protein 6.1 L Albumin 3.0 L Vitamin B12 Folate TSH Urine Color Yellow Urine Clarity Clear Urine pH 6.0 Ur Specific [place] 1.015 Urine Protein Negative Urine Ketones Negative Urine Blood Negative Urine Nitrite Negative Urine Bilirubin Negative Urine Urobilinogen 2.0 H Ur Leukocyte Esterase Negative Urine RBC Negative Urine WBC 0-2 Ur Epithelial Cells Negative Urine Crystals Negative Urine Bacteria Rare Urine Casts Negative Urine Mucus Negative Ur Culture Indicated? No Urine Glucose >=1000 H Urine Opiates Screen Negative Urine Methadone Screen Negative Ur Barbiturates Screen Negative Ur Tricyclics Screen Negative Ur Amphetamines Screen Negative U Benzodiazepines Scrn Negative Urine Cocaine Screen Negative Ur THC Screen Negative 05/31/25 06/01/25 19:35 06:33 WBC 3.69 L RBC 3.93 L Hgb 14.6 Hct 40.3 MCV 103 H MCH 37.2 H MCHC 36.2 H RDW 14.1 Plt Count 114 L MPV 10.3 Immature Gran % 0.0 Neutrophils % 41.8 Lymphocytes % 45.5 Monocytes % 9.5 Eosinophils % 2.4 Basophils % 0.8 Nucleated RBC % 0.0 Absolute Neutrophils 1.54 Absolute Lymphocytes 1.68 Absolute Monocytes 0.35 Absolute Eosinophils 0.09 Absolute Basophils 0.03 PT INR Sodium 142 Potassium 3.9 Chloride 108 H Carbon Dioxide 24.6 Anion Gap 9.4 BUN 13 Creatinine 1.0 Est GFR (CKD-EPI 2020) 78.00 Glucose 134 H Calcium 8.6 Magnesium Iron 97 TIBC 217 L Transferrin % Sat 45 Total Bilirubin 1.2 H AST 23 ALT 36 Alkaline Phosphatase 108 Ammonia 140 H Troponin I Cancelled NT-Pro-B Natriuret Pep Total Protein 5.7 L Albumin 2.8 L Vitamin B12 1269 H Folate 17.7 TSH 1.33 Urine Color Urine Clarity Urine pH Ur Specific [place] Urine Protein Urine Ketones Urine Blood Urine Nitrite Urine Bilirubin Urine Urobilinogen Ur Leukocyte Esterase Urine RBC Urine WBC Ur Epithelial Cells Urine Crystals Urine Bacteria Urine Casts Urine Mucus Ur Culture Indicated? Urine Glucose Urine Opiates Screen Urine Methadone Screen Ur Barbiturates Screen Ur Tricyclics Screen Ur Amphetamines Screen U Benzodiazepines Scrn Urine Cocaine Screen Ur THC Screen Time Spent with Patient Time Spent with Patient: 35-49 minutes Time was spent: preparing to see the patient(eg.review tests), obtaining and/or reviewing separately otained hiistory, ordering medications,tests, procedures, referring, communicating with other health respiratory care practitioner, indepentently interpreting results, counseling the patient and care coordination
[2025-06-01 20:38] VITALS: BP 102/76; PULSE 100; RESP 16; TEMP 36.8; O2SAT 92
[2025-06-01 23:37] VITALS: BP 135/75; PULSE 72; RESP 16; TEMP 37.1; O2SAT 93
[2025-06-02 03:39] VITALS: BP 131/98; PULSE 66; RESP 16; TEMP 37.2
--- NOTE | 2025-06-02 06:41 | NUR.NOTE ---
Nursing Note: Pt and Susan endorse having 4 bedrails up for safety while in bed
[2025-06-02 07:25] LABS: Hemoglobin A1C 6.8 % (<5.7)
[2025-06-02] MEDS: Lactulose 20 GM/30 ML CUP PO (09:20)
[2025-06-02] MEDS: Lactulose 20 GM/30 ML CUP 200 GM PR (10:06)
--- NOTE | 2025-06-02 10:17 | CMPROGNOTE_ITS ---
Date of service: 06/02/25 Time of Service: 10:17 Care Management Progress Note Progress Note Text Progress Note Text: Bo was awake and lying in bed when CM met with him. He is accompanied by his , whom is cueing him to swallow while feeding him pudding. He choked on eggs this morning which his reports he has never done before and a ST eval was ordered for recommendations. Plan is to continue to monitor and treat acute encephlopathy. PT consult is ordered. Patient and are not interested in SNF for STR. CM will follow. Discharge Potential Discharge Needs: PCP F/U Appt Anticipated Barriers to Discharge: None Identified Patient/Family Education Needs: Review discharge instructions, discuss Ask Me Three Transportation: Private vehicle Plan: Anticipate, Bo will discharge home with resumption of H RN/PT (add OT/SED SPECIAL EDUCATION TEACHER) via private vehicle with family once medically ready. Transportation will be dependent on mobility at the time of discharge. PT consult is ordered. He follow up with community providers and continue per his discharge plan of care. CM will follow. Social Determinants of Health Screening Will the Patient Participate in the Screening?: Declined to provide Do you worry about having a steady place to live?: choose not to answer
[2025-06-02] MEDS: Apixaban 5 MG TAB PO (11:09)
[2025-06-02] MEDS: Cyanocobalamin 500 MCG TAB 1000 MCG PO (11:09)
[2025-06-02] MEDS: Magnesium Oxide 400 MG TAB PO (11:09)
[2025-06-02] MEDS: Empaglifozin 25 MG TAB PO (11:09)
[2025-06-02] MEDS: Atorvastatin 20 MG TAB PO (11:09)
[2025-06-02] MEDS: Pantoprazole 40 MG TABCR PO (11:09)
[2025-06-02] MEDS: Rifaximin 550 MG TAB PO (11:09)
[2025-06-02] MEDS: Tamsulosin 0.4 MG CAPCR PO (11:09)
[2025-06-02] MEDS: FLUoxetine 10 MG TAB PO (11:09)
[2025-06-02] MEDS: Cholecalciferol (Vitamin D3) 1,000 UNIT TAB 1000 UNITS PO (11:10)
[2025-06-02] MEDS: Normal Saline Flush 10 ML SYR IVP ×2 (11:10→20:26)
[2025-06-02 11:30] VITALS: BP 125/80; PULSE 78; RESP 16; TEMP 36.7; O2SAT 98
[2025-06-02] MEDS: Lactulose 20 GM/30 ML CUP 30 GM PO ×3 (12:33→20:25)
[2025-06-02] MEDS: Tiotropium Bromide-Respimat 10 PUFF INH 2 PUFF IH (14:54)
--- NOTE | 2025-06-02 15:08 | PT.INTREAT ---
PT Notes Visit Reasons: Encephalopathy Date: 06/02/2025 PRECAUTIONS: Fall. risk, standard precautions SUBJECTIVE: pt in bed when approached for therapy this afternoon, pt pleasantly confused, reports he is not sure what he is suppose to do now, pt reports he would like to try and move to the recliner when offered to participate with transfer activity. ? PAIN: 0 painad VITALS: monitored by nursing Therapeutic Activities 01396: Direct one-on-one instruction in dynamic activities to improve functional performance. ?? BED MOBILITY/TRANSFERS? Rolling L/R: max A Supine-sit: ?max A ? Sit-supine: ? max A? Sit-stand: ? CGA? Stand-sit: CGA? Bed-Chair:? ?max A ? Chair-bed: max A Provided skilled cues and instruction on performance and technique throughout. ? Therapeutic Exercises 72422: Direct one-on-one instruction in therapeutic exercises to develop strength, endurance, range of motion and flexibility. Exercises Heel slides [id number] Bridging [id number] Seated marching [id number] Provided skilled instruction in proper exercise performance Provided skilled manual cues to facilitate proper muscle recruitment and/or form: Neuromuscular Re-education 00516: Activities that facilitate re-education of movement balance, posture, coordination, and proprioception or kinesthetic sense, requiring skilled tactile and verbal cues Exercises/techniques: ? Static sitting balance activity 5min Sit to stand 8x with cues to stand straighter ASSESSMENT:?Pt having a difficult time with lifting his LE to step forward, as well as step sideways. max A on stand pivot transfer going from the foot of the bed to WC, max A from WC to head of bed. pt showing significant decline compared to previous session. PLAN: Continue with balance training, global strengthening and general conditioning for improved safety, mobility and activity tolerance until pt is ready for DC. TREATMENT CODE/TIME: 72376c3, [id number], [id number] 30mins (2:20-2:50pm)
--- NOTE | 2025-06-02 16:01 | SP_ITS ---
Date of service: 06/02/25 Time of Service: 15:00 Subjective Clinical (Bedside) Swallow Evaluation Speech Language Pathology Referred by: Dr Dominic Nicole Referral Type: Clinical Swallow Evaluation Reason for Referral/HPI: Bo Laird is a 74 yo male adm to [facility] 05/31/25 with AMS/hepatic encephalopathy. PMH is signifciant for COPD, DM, Cirrhosis, Afib. He was recently admitted at [facility] for one week approximately 3 weeks ago with encephalopathy and discharged on lactulose. Per [facility], he was receiving 1:1 feed assist but eating a regular diet/thin liquids without aspiration concern. MACHINE REPAIR PERSON referral placed after Manny choked on scrambled eggs this morning requiring suctioning. MACHINE REPAIR PERSON IMPRESSIONS & RECOMMENDATIONS: Patient seen sitting upright in bed with fluctuating alertness and lethargy. His eyes remained closed for majority of evaluation with open mouth posture, though he was able to respond with 'yes', 'no', 'fine'. He presents with acute on chronic oral pharyngeal dysphagia largely impacted by cognition/somnolence/deconditioned status. He demonstrated munching vs rotary chew and his swallow was delayed and at times appeared effortful. Manny is considered a heightened aspiration risk in light of this, though risks can be mitigated with precautions and diet modifications as outlined below. Education provided to re: recommendations and all questions answered. FURTHER MACHINE REPAIR PERSON SERVICES: Patient to be followed while on unit for re-assessment/consideration of diet upgrade. Diet Recommendations: SOLIDS- L5 minced/moist solids & L4 Puree solids (Order at least 1 puree item per meal for endurance) LIQUIDS- Mildly thick liquids straw OK *Frank Free Water Protocol: Outside of meals, OK for small sips of thin liquid via spoon or with straw pinch, as long as oral care is completed first MEDICATIONS - Whole (if small) or crushed in applesauce Strict aspiration precautions as outlined below. Pain Reported? None reported Baseline Swallow Function: Regular diet/thin liquids per , 1:1 feed at baseline PO Trials Assessed: IDDSI 0 Thin Liquids IDDSI 2 Mildly Thick Liquid IDDSI 4 Puree Solid IDDSI 5 Minced and Moist Solid Oral Mechanism Examination: Upper dentures. Oral mucosa is dry. Oral Phase Findings: Anterior leakage from mouth Difficulty with bolus manipulation Difficulty with a-p transport Difficulty chewing Min Residue lingual surface Pharyngeal Phase Findings: Very delayed swallow initiation cough x 1 thin liquids Reduced hyolaryngeal elevation/excursion ? ASSESSMENT: Further MACHINE REPAIR PERSON Services indicated. Patient to be followed while on unit. Recommendation at Discharge: TBD Suggested Referrals: N/A Recommended Procedures:N/A RISK MANAGEMENT: HOB upright as tolerated; upright for all PO intake. Oral hygiene before/after PO intake PO intake only when awake/alert? Small sips and bites when eating Education Provided to: Nursing, patient, famliy Topics Addressed: MACHINE REPAIR PERSON findings, aspiration precautions PLAN: Frequency: 1-2x/week for 1-2 weeks Goals: Correction Goals: Patient will remain free from aspiration-related illness, malnutrition, and dehydration. Short Term Goals: Patient will tolerate L5 Minced Moist Diet and Mildly thick liquids without overt s/s aspiration across 2/2 visits. Patient will tolerate PO trials for consideration of diet upgrade without overt s/s aspiration across 2/2 visits. MACHINE REPAIR PERSON CPT Code: 52287 Clinical Swallowing Evaluation TOTAL TIME: 8126-7845 Minutes 40 min
--- NOTE | 2025-06-02 18:42 | W.PM.PROGNOT ---
Date of Service Date of service: 06/02/25 Time of Service: 18:42 Assessment and Plan Assessment and plan (1) Encephalopathy: Status: Acute Assessment and plan: Hepatic. CT negative on admission. Exact reason for the exacerbation is unknown but related to decreased stooling. Still no signs of infection. He still isn't stooling despite increase in lactulose along with rifaximin, encephalopathy worse today. Started lactulose enemas, given a dose of mag citrate and senna, goal at least 3 stool/day (2) Cirrhosis: Status: Acute Assessment and plan: Family attributes this to his service. He is certainly at risk for MASLD. [facility] He is compensated per labs other than encephalopathy. (3) Cavitating mass in right upper lung lobe: Status: Acute Assessment and plan: This was mentioned on an old chest x-ray. As well as alluded to Dr. Dumont's chest x-ray reading. Patient is on medications that would be consistent with treatment of fungal lesion, has been on this chronically x 2 years per family, [facility]. (4) COPD (chronic obstructive pulmonary disease): Status: Chronic Assessment and plan: Continue tiotropium, not currently exacerbated. (5) Diabetes: Status: Chronic Assessment and plan: Treated on semaglutide and empagliflozin, which is appropirate with obesity. He may be intolerant to metformin. (6) Afib: Status: Chronic Assessment and plan: Patient is on Eliquis as well as propranolol. He is rate controlled. (7) BPH (benign prostatic hyperplasia): Status: Chronic Assessment and plan: Continue Flomax as scheduled. (8) MDD (major depressive disorder): Status: Chronic Assessment and plan: on fluoxetine, which has risk of accumulation with cirrhosis. I don't see signs of serotonin toxicity, he is on a low dose, so will defer medication change or dose reduction to PCP. Exam Narrative Exam Narrative: GEN: More somnolent, but arouses, orient to self only. No apparent hallucinations Cardiovascular-regular rate and rhythm no murmur rubs gallops but distant Pulmonary-clear to auscultation bilaterally, normal effort. Abdomen-protuberant no tenderness to palpate all 4 quadrants, +fluid wave, but not tensely distended. Extremities-warm, 1+ LE edema bilaterally Neurologic- somnolent, slow speech, no focal deficits noted, + asterixis Objective Last Vital Signs Temp 36.7 C 06/02/25 11:30 Pulse 78 06/02/25 11:30 Resp 16 06/02/25 11:30 BP 125/80 06/02/25 11:30 Pulse Ox 98 06/02/25 11:30 Laboratory Results - last 24 hr 06/02/25 06:08 Hemoglobin A1c 6.8 H Time Spent with Patient Time Spent with Patient: 35-49 minutes Time was spent: preparing to see the patient(eg.review tests), obtaining and/or reviewing separately otained hiistory, ordering medications,tests, procedures, referring, communicating with other health early breastfeeding care specialist, indepentently interpreting results, counseling the patient and care coordination
[2025-06-02] MEDS: Magnesium Citrate 300 ML BTL 150 ML PO (20:25)
[2025-06-02 20:57] VITALS: BP 138/101; PULSE 88; RESP 16; TEMP 36.8; O2SAT 93
[2025-06-03 04:47] VITALS: BP 120/97; PULSE 60; RESP 16; TEMP 36.7; O2SAT 93
[2025-06-03 07:36] VITALS: BP 119/86; PULSE 57; RESP 17; TEMP 36.6; O2SAT 93
[2025-06-03] MEDS: Normal Saline Flush 10 ML SYR IVP ×2 (08:10→19:38)
[2025-06-03] MEDS: Lactulose 20 GM/30 ML CUP 30 GM PO (08:11)
[2025-06-03] MEDS: Atorvastatin 20 MG TAB PO (08:16)
[2025-06-03] MEDS: Apixaban 5 MG TAB PO ×2 (08:16→19:38)
[2025-06-03] MEDS: Cyanocobalamin 500 MCG TAB 1000 MCG PO (08:21)
[2025-06-03] MEDS: Cholecalciferol (Vitamin D3) 1,000 UNIT TAB 1000 UNITS PO (08:22)
[2025-06-03] MEDS: Pantoprazole 40 MG TABCR PO (08:22)
[2025-06-03] MEDS: Rifaximin 550 MG TAB PO ×2 (08:23→19:38)
[2025-06-03] MEDS: Empaglifozin 25 MG TAB PO (08:27)
[2025-06-03] MEDS: FLUoxetine 10 MG TAB PO (08:27)
[2025-06-03] MEDS: Magnesium Oxide 400 MG TAB PO (08:27)
[2025-06-03] MEDS: Tamsulosin 0.4 MG CAPCR PO (08:28)
--- NOTE | 2025-06-03 08:45 | CMPROGNOTE_ITS ---
Date of service: 06/03/25 Time of Service: 08:45 Care Management Progress Note Progress Note Text Progress Note Text: Bo continues to be closely monitored and treated for encephalopathy, which appears to be improving as he is beginning to look better clinically. His remains at the bedside, and continues to be very attentive to his needs and has been staying overnight. Per RN, he had 2 copious BMs overnight. Plan is to continue bowel meds, with a goal is 3 stools a day, per provider. Records from the [place] are requested. Per [place] medical record department, will be faxed to CM today. [facility] is notified patient will likely be discharging with full [facility] ser vices, once medically ready. CM will follow. Discharge Anticipated Barriers to Discharge: None Identified Patient/Family Education Needs: Review discharge instructions, discuss Ask Me Three Transportation: Private vehicle Plan: Anticipate, Bo will discharge home with resumption of [facility] RN/PT (add OT/CAR RENTAL AGENT) via private vehicle with family once medically ready. Transportation will be dependent on mobility at the time of discharge. PT consult is ordered. He follow up with community providers and continue per his discharge plan of care. CM will follow. Social Determinants of Health Screening Will the Patient Participate in the Screening?: Declined to provide Do you worry about having a steady place to live?: choose not to answer
[2025-06-03] MEDS: Tiotropium Bromide-Respimat 10 PUFF INH 2 PUFF IH (09:01)
[2025-06-03 09:15] LABS: Abs Immature Grans 0.02 10^3/uL (0.0-0.06); HCT 44.6 % (40.0-50.0); HGB 16.1 g/dL (13.5-17.5); Immature Grans % 0.4 %; MCH 36.7 pg (27.0-33.0); MCHC 36.1 % (32.0-36.0); MCV 102 fL (80-95); MPV 10.1 fL (8.0-11.0); Platelet Count 126 10^3/uL (130-400); RBC 4.39 10^6/uL (4.36-5.78); RDW 14.2 % (11.8-14.1); RDW-SD 53.1 fL; WBC 4.76 10^3/uL (4.4-10.8)
[2025-06-03 09:18] LABS: Magnesium 2.0 mg/dL (1.8-2.4)
[2025-06-03 09:19] LABS: INR 1.2 (0.9-1.1); Prothrombin Time 12.1 sec (9.1-11.1)
[2025-06-03 09:30] LABS: ALT 41 U/L (16-63); AST 25 U/L (15-37); Albumin 3.2 g/dL (3.4-5.0); Alkaline Phosphatase 119 U/L (46-116); Anion Gap 11.8 mmol/L (3-11); BUN 18 mg/dL (7-18); Bilirubin, Total 1.9 mg/dL (0.2-1.0); CO2 23.2 mmol/L (21.0-32.0); Calcium 8.9 mg/dL (8.5-10.1); Chloride 107 mmol/L (98-107); Estimated GFR 69.57 (mL/min/1.73m2); Glucose 152 mg/dL (74-106); Potassium 3.9 mmol/L (3.5-5.1); Sodium 142 mmol/L (136-145); Total Protein 6.5 g/dL (6.4-8.2)
--- NOTE | 2025-06-03 11:19 | PTTR_ITS ---
PT Notes Visit Reasons: Encephalopathy Date: 06/03/2025 PRECAUTIONS: Fall. risk, standard precautions SUBJECTIVE: First session?pt in bed when approached for therapy , pt pleasantly confused. reports patient had a very difficult evening and is uncertain of his ability to walk at this time Second session?? ?patient stating he wants to walk ? PAIN: 0 pain VITALS: monitored by nursing Therapeutic Activities 01106: Direct one-on-one instruction in dynamic activities to improve functional performance. ?? BED MOBILITY/TRANSFERS? 1st and 2nd session: Rolling L/R: Min assist Supine-sit: Min assist ? Sit-supine: ? Mod assist? Sit-stand: ? CGA?x 5 trials first session, x 3 trials second session; verbal and tactile cues for hand placement ? Stand-sit: CGA verbal and tactile cues for proper hand placement ? Second session: Bed-Chair:? ?Min assist with FWW for safe approach and FWW management? Chair-commode: Min assist with FWW for safe approach and management Provided skilled cues and instruction on performance and technique throughout. ? First session Exercises/techniques: ? Static sitting balance activity 5min noted increased lean to the left requiring tactile cues to correct to midline Sit to stand 5 x with cues to stand straighter Second session: Facilitated safe and correct performance of level surface ambulation covering a distance of 30 feet x 2 using use front wheeled walker with contact-guard assist and wheelchair follow for safety. Did not report of any increased pain. Denied headache, chest pain, and lightheadedness throughout activity. Minimal verbal cueing provided for AD management, directional changes, and posture. ASSESSMENT:?Pt patient with improved functional abilities as noted above from prior session. Patient increase vocalizations and ability to follow instructio ns with less verbal and tactile cues. Patient with improved ability to advance lower extremities and sustain upright posture during ambulation and transfers. present and encouraged by his progress PLAN: Continue with balance training, global strengthening and general conditioning for improved safety, mobility and activity tolerance until pt is ready for DC. TREATMENT CODE/TIME: First session [id number] Second session [id number]
[2025-06-03] MEDS: Magnesium Citrate 300 ML BTL 150 ML PO (11:42)
[2025-06-03] MEDS: Lactulose 20 GM/30 ML CUP 200 GM PR (11:59)
[2025-06-03 12:00] VITALS: BP 125/80; PULSE 83; RESP 16; TEMP 35.7; O2SAT 95
--- NOTE | 2025-06-03 12:40 | W.PALLCONSUL ---
Date of service: 06/03/25 Time of Service: 15:32 History of Present Illness Narrative: Bo was seen for Palliative consultation due to recurrent admissions and encephalopathy. Bo was falling asleep at the time of the visit. He was able to state his name, TRISHA and that he was in [facility] at the [facility]. He fell asleep before he could give the date. Phone call to his , Susan. Reviewed what Palliative care offers. She thinks he may have AD. He went to a slab lifting engineer and they have it in the safe. It is unclear if this is financial or r/t healthcare. Discussed his CODE status, he is currently a full code, Susan believes this is what he wants. She feels they have enough help with HH coming in and expects this to be resumed when he is discharged from the hospital. She mentioned that she is exhausted. She is just home for a brief period and will be coming back to the hospital. Assessment and Plan Assessment and plan (1) Encephalopathy: Status: Acute Assessment and plan: Hepatic. CT negative on admission. Exacerbation related to not stooling on a regular basis despite his lactulose and rifaxmimin. No signs of infection. Looking better today, but MS still fluctuating. He is getting enemas and mag citrate. Further increase lactulose along with rifaximin until goal reached of at least 3 stool/day (2) Cirrhosis: Status: Acute Assessment and plan: Family attributes this to his service. He is at risk for MASLD, azole may have contributed. Current Child-Martinez class B, score 8 [facility] He remains compensated per labs other than encephalopathy. 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 The isavuconazole is possibly liver toxic, but less than other azoles, and necessary for this infection. Per drug information Child-Martinez class C is contraindication, his is currently class B (4) COPD (chronic obstructive pulmonary disease): Status: Chronic Assessment and plan: Continue tiotropium, not currently exacerbated. (5) Diabetes: Status: Chronic Assessment and plan: On semaglutide and empagliflozin. (6) Afib: Status: Chronic Assessment and plan: Patient is on Eliquis as well as propranolol. He is rate controlled. (7) BPH (benign prostatic hyperplasia): Status: Chronic Assessment and plan: On Flomax. (8) MDD (major depressive disorder): Status: Chronic Assessment and plan: on fluoxetine, which has risk of accumulation with cirrhosis. No signs of serotonin toxicity, he is on a low dose, so deferring medication change option to PCP. (9) Palliative care encounter: Status: Acute Assessment and plan: Reviewed what Palliative can offer with his , Susan. He was too sleepy to engage in the visit. Palliative to f/u either here at [facility] when he is more alert or after discharge home. (10) Advanced care planning/counseling discussion: Status: Acute Assessment and plan: Susan thinks he has AD at home that were done with a slab lifting engineer but it is unclear if it is financial or r/t healthcare. She believes he wants to be FULL CODE- review when he is more alert. It does not appear that he has seen palliative care in the past and he would likely benefit with his medical conditions. Palliative will try to see him again while he is here and f/u outpatient if he is discharged prior to f/u here. Review of Systems Narrative: Unable, falling alseep PFSH All Active Problems (Updated 06/03/25 @ 16:15 by Marion Murray NP) Advanced care planning/counseling discussion (Acute) Palliative care encounter (Acute) Acute hepatic encephalopathy (Acute) BPH (benign prostatic hyperplasia) (Chronic) MDD (major depressive disorder) (Chronic) Dyslipidemia (Acute) Afib (Chronic) Diabetes (Chronic) COPD (chronic obstructive pulmonary disease) (Chronic) Cavitating mass in right upper lung lobe (Acute) Elevated MCV (Acute) Cirrhosis (Acute) Encephalopathy (Acute) S/P total knee arthroplasty (Acute) RIGHT Osteoarthritis of left knee (Acute) Social History Smoking/Tobacco Use Status: Former Tobacco Use Quit Date: 09/15/84 Tobacco: How many years used: 25 Smoking risk assessment performed?: Yes Alcohol Intake: current Alcohol Intake frequency: 0-2 drinks per day Alcohol type: beer Substance use type: does not use Housing: house Do you feel safe at home: Yes Do you feel safe in your relationship?: Yes Exam Narrative Exam Narrative: General: Alert, orient to self and hospital, fell asleep before he could state date. Unable to keep his eyes open, lying in hospital bed with HOB elevated. Respiratory: Respirations appear even and unlabored. GI: protuberant, softly distended. Extremities: moves all 4 extremities freely, 1+ edema bilaterally Results Last Vital Signs Temp 36.6 C 06/03/25 07:36 Pulse 57 L 06/03/25 07:36 Resp 17 06/03/25 07:36 BP 119/86 06/03/25 07:36 Pulse Ox 93 06/03/25 07:36 Labs 06/03/25 09:00 06/03/25 09:00 Labs: Laboratory Results - last 24 hr 06/03/25 09:00 WBC 4.76 RBC 4.39 Hgb 16.1 Hct 44.6 MCV 102 H MCH 36.7 H MCHC 36.1 H RDW 14.2 H Plt Count 126 L MPV 10.1 Immature Gran % 0.4 Neutrophils % 58.7 Lymphocytes % 29.8 Monocytes % 9.7 Eosinophils % 0.8 Basophils % 0.6 Nucleated RBC % 0.0 Absolute Neutrophils 2.79 Absolute Lymphocytes 1.42 Absolute Monocytes 0.46 Absolute Eosinophils 0.04 Absolute Basophils 0.03 PT 12.1 H INR 1.2 H Sodium 142 Potassium 3.9 Chloride 107 Carbon Dioxide 23.2 Anion Gap 11.8 H BUN 18 Creatinine 1.1 Est GFR (CKD-EPI 2020) 69.57 Glucose 152 H Calcium 8.9 Magnesium 2.0 Total Bilirubin 1.9 H AST 25 ALT 41 Alkaline Phosphatase 119 H Total Protein 6.5 Albumin 3.2 L Time Spent Time Spent with Patient Time Spent(min): 45
[2025-06-03] MEDS: Lactulose 20 GM/30 ML CUP 40 GM PO ×3 (12:50→19:38)
--- NOTE | 2025-06-03 14:27 | PGE_ITS ---
Date of Service Date of service: 06/03/25 Time of Service: 14:27 Assessment and Plan Assessment and plan (1) Encephalopathy: Status: Acute Assessment and plan: Hepatic. CT negative on admission. Exacerbation related to not stooling on a regular basis despite his lactulose and rifaxmimin. No signs of infection. After worsening 06/02, looking better today, but MS still fluctuating He has started stooling after enema, will give again today with another dose mag citrate. Further increase lactulose along with rifaximin until goal reached of at least 3 stool/day (2) Cirrhosis: Status: Acute Assessment and plan: Family attributes this to his service. He is certainly at risk for MASLD, azole may have contributed. Current Child-Martinez class B, score 8 [facility] He remains compensated per labs other than encephalopathy. 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 The isavuconazole is possibly liver toxic, but less than other azoles, and necessary for this infection. Per drug information Child-Martinez class C is contraindication, his is currently class B (4) COPD (chronic obstructive pulmonary disease): Status: Chronic Assessment and plan: Continue tiotropium, not currently exacerbated. (5) Diabetes: Status: Chronic Assessment and plan: Treated on semaglutide and empagliflozin, which is appropirate with obesity. He may be intolerant to metformin. (6) Afib: Status: Chronic Assessment and plan: Patient is on Eliquis as well as propranolol. He is rate controlled. (7) BPH (benign prostatic hyperplasia): Status: Chronic Assessment and plan: Continue Flomax as scheduled. (8) MDD (major depressive disorder): Status: Chronic Assessment and plan: on fluoxetine, which has risk of accumulation with cirrhosis. No signs of serotonin toxicity, he is on a low dose, so deferring medication change option to PCP. Subjective Subjective Patient reports: tolerating a regular diet and voiding w/o difficulty; denies nausea, vomiting, shortness of breath or fever Interval history since last seen: He is more alert today, more active, but still not better. He had two large BMs yesteray after enema, no yet this morning. Exam Narrative Exam Narrative: GEN: Alert, orient to self and hospital, not date. No hallucinations Cardiovascular-regular rate and rhythm no murmur rubs gallops but distant Pulmonary-clear to auscultation bilaterally, normal effort. Abdomen-protuberant no tenderness to palpate all 4 quadrants, not tensely distented. Extremities-no cyanosis, 1+ edema bilaterally Neurologic-intact, no longer asterixis Objective Last Vital Signs Temp 35.7 C L 06/03/25 12:00 Pulse 83 06/03/25 12:00 Resp 16 06/03/25 12:00 BP 125/80 06/03/25 12:00 Pulse Ox 95 06/03/25 12:00 Laboratory Results - last 24 hr 06/03/25 09:00 WBC 4.76 RBC 4.39 Hgb 16.1 Hct 44.6 MCV 102 H MCH 36.7 H MCHC 36.1 H RDW 14.2 H Plt Count 126 L MPV 10.1 Immature Gran % 0.4 Neutrophils % 58.7 Lymphocytes % 29.8 Monocytes % 9.7 Eosinophils % 0.8 Basophils % 0.6 Nucleated RBC % 0.0 Absolute Neutrophils 2.79 Absolute Lymphocytes 1.42 Absolute Monocytes 0.46 Absolute Eosinophils 0.04 Absolute Basophils 0.03 PT 12.1 H INR 1.2 H Sodium 142 Potassium 3.9 Chloride 107 Carbon Dioxide 23.2 Anion Gap 11.8 H BUN 18 Creatinine 1.1 Est GFR (CKD-EPI 2020) 69.57 Glucose 152 H Calcium 8.9 Magnesium 2.0 Total Bilirubin 1.9 H AST 25 ALT 41 Alkaline Phosphatase 119 H Total Protein 6.5 Albumin 3.2 L Time Spent with Patient Time Spent with Patient: 35-49 minutes Time was spent: preparing to see the patient(eg.review tests), obtaining and/or reviewing separately otained hiistory, ordering medications,tests, procedures, referring, communicating with other health career placement specialist, indepentently interpreting results, counseling the patient and care coordination
[2025-06-03 15:14] VITALS: BP 121/84; PULSE 77; RESP 17; TEMP 36.9; O2SAT 94
--- NOTE | 2025-06-03 15:43 | PDOC.STREC ---
Date of service: 06/03/25 Time of Service: 15:43 Speech Therapy Recommendations Report ST Recommendations: PRACTICE SUPPORT SPECIALIST considering trial of upgraded diet texture this date, but RN reporting that while patient is with good tolerance of current diet this date (Minced/Moist Solids and Mildly Thick Liquids), his mentation has fluctuated up and down today. Would like to see patient with more stable improvement in alertness/mental status before trialling trays with thin liquids or upgraded solids, especially over the weekend without PRACTICE SUPPORT SPECIALIST services present. Continue to recommend implementation of [place] Protocol to allow patient to drink unthickened water between meals, with good oral care in place, under supervision. Recommendations remain as below per initial evaluation, PRACTICE SUPPORT SPECIALIST will attempt to re-evaluate patient on Friday for diet upgrades if he is able to maintain improved mental status/alertness consistently at that time. Diet Recommendations: SOLIDS- L5 minced/moist solids & L4 Puree solids (Order at least 1 puree item per meal for endurance) LIQUIDS- Mildly thick liquids straw OK *Frank Free Water Protocol: Outside of meals, OK for small sips of thin liquid via spoon or with straw pinch, as long as oral care is completed first MEDICATIONS - Whole (if small) or crushed in applesauce Strict aspiration precautions as outlined below. Pain Reported? None reported Baseline Swallow Function: Regular diet/thin liquids per , 1:1 feed at baseline Further PRACTICE SUPPORT SPECIALIST Services indicated. Patient to be followed while on unit. Recommendation at Discharge: TBD Suggested Referrals: N/A Recommended Procedures:N/A
[2025-06-03] MEDS: Acetaminophen 325 MG TAB PO (19:51)
[2025-06-03 19:58] VITALS: BP 113/86; PULSE 91; RESP 15; TEMP 37.1; O2SAT 95
[2025-06-03 22:58] VITALS: BP 124/83; PULSE 80; RESP 15; TEMP 36.6; O2SAT 94
[2025-06-04 06:38] VITALS: BP 123/83; PULSE 63; RESP 15; TEMP 36.3; O2SAT 96
[2025-06-04 07:31] VITALS: BP 123/61; PULSE 60; RESP 16; TEMP 36.7; O2SAT 98
[2025-06-04] MEDS: Tiotropium Bromide-Respimat 10 PUFF INH 2 PUFF IH (08:10)
[2025-06-04] MEDS: Magnesium Oxide 400 MG TAB PO (08:29)
[2025-06-04] MEDS: FLUoxetine 10 MG TAB PO (08:29)
[2025-06-04] MEDS: Tamsulosin 0.4 MG CAPCR PO (08:29)
[2025-06-04] MEDS: Rifaximin 550 MG TAB PO ×2 (08:29→19:52)
[2025-06-04] MEDS: Atorvastatin 20 MG TAB PO (08:29)
[2025-06-04] MEDS: Empaglifozin 25 MG TAB PO (08:30)
[2025-06-04] MEDS: Pantoprazole 40 MG TABCR PO (08:30)
[2025-06-04] MEDS: Lactulose 20 GM/30 ML CUP 40 GM PO ×4 (08:30→19:53)
[2025-06-04] MEDS: Cyanocobalamin 500 MCG TAB 1000 MCG PO (08:30)
[2025-06-04] MEDS: Apixaban 5 MG TAB PO ×2 (08:30→19:52)
[2025-06-04] MEDS: Cholecalciferol (Vitamin D3) 1,000 UNIT TAB 1000 UNITS PO (08:30)
[2025-06-04] MEDS: Normal Saline Flush 10 ML SYR IVP ×2 (08:31→19:54)
--- NOTE | 2025-06-04 10:45 | PT.INTREAT ---
Date of service: 06/04/25 Time of Service: 10:15 PT Notes Visit Reasons: Encephalopathy Date: 06/04/2025 PRECAUTIONS: Fall. risk, standard precautions SUBJECTIVE: Bo up in recliner. Notes increased shoulder pain. Would like to get back to bed however is agreeable to completing some exercises with PT this morning. PM: Bo is agreeable to taking a short walk. Really would like to get some sleep and take a nap. ? PAIN: 4-5/10 bilateral shoulders/ no complaints of pain in pm session VITALS: monitored by nursing Therapeutic Activities 46599: Direct one-on-one instruction in dynamic activities to improve functional performance. ?? BED MOBILITY/TRANSFERS? Rolling L/R: SBA Supine-sit: SBA? Sit-supine: ? SBA? Sit-stand: ? CGA? Stand-sit: CGA? Bed-Chair:? ?Eileen with FWW? Chair-bed: Eileen with FWW Provided skilled cues and instruction on performance and technique throughout. PM session Gait: Device FWW Full weightbearing Distance 50ft x2 Deviation: forwardly flexed lumbar spine, requires cueing to stay close into walker, decreased keyana, WBOS, slightly shorter stride length on R vs L ? Therapeutic Exercises 11807: Direct one-on-one instruction in therapeutic exercises to develop strength, endurance, range of motion and flexibility. Exercises Shoulder forward elevation 0-90 degrees x10 R/L Scapular Retraction 10x5s Bicep curl 10x R/L Seated November 10x R/L LAQ 10x R/L HR standing 10x with use of FWW for support Ankle pumps 10x Heel slides 10x R/L Provided skilled instruction in proper exercise performance Provided skilled manual cues to facilitate proper muscle recruitment and/or form. Provided STM throughout the posterior cuff and periscapular region in seated position. Readjusted pillows to avoid increased cervical forward head/flexion. ASSESSMENT:?Bo demonstrated improved functional transfers as well as bed mobility. PLAN: Continue with balance training, global strengthening and general conditioning for improved safety, mobility and activity tolerance until patient is ready for DC. TREATMENT CODE/TIME: [id number], [id number] 30 minutes 10:15-10:45 PM session [id number] 15 minutes 14:30-14:45 Marion Durbin,WINTER
--- NOTE | 2025-06-04 11:33 | PGE_ITS ---
Date of Service Date of service: 06/04/25 Time of Service: 11:33 Assessment and Plan Assessment and plan (1) Encephalopathy: Status: Acute Assessment and plan: -Hepatic. -CT negative on admission. -Exacerbation related to not stooling on a regular basis despite his lactulose and rifaxmimin. -No signs of infection. -After worsening 06/02, started to improve on 06/03 and continues to do so -good BMs s/p edema -continue increased lactulose along with rifaximin until goal reached of at least 3 stool/day (2) Cirrhosis: Status: Acute Assessment and plan: -Family attributes this to his service. -He is certainly at risk for MASLD, azole may have contributed. -Current Child-Martinez class B, score 8 -He remains compensated per labs other than encephalopathy. 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 -Per drug information Child-Martinez class C is contraindication, his is currently class B (4) COPD (chronic obstructive pulmonary disease): Status: Chronic Assessment and plan: -Continue tiotropium, not currently exacerbated. (5) Diabetes: Status: Chronic Assessment and plan: -Treated on semaglutide and empagliflozin, which is appropirate with obesity. (6) Afib: Status: Chronic Assessment and plan: -Patient is on Eliquis as well as propranolol. (7) BPH (benign prostatic hyperplasia): Status: Chronic Assessment and plan: -Continue Flomax as scheduled. (8) MDD (major depressive disorder): Status: Chronic Assessment and plan: -on fluoxetine, which has risk of accumulation with cirrhosis. -No signs of serotonin toxicity, he is on a low dose, so deferring medication change option to PCP. Subjective Subjective Interval history since last seen: Patient states that he is doing better today and has no complaints or concerns. Exam Narrative Exam Narrative: fatigued but well appearing older gentleman sitting up in the chair in no acute distress, AOx3, heart RRR, lungs CTAB, abdomen soft, non-tender, non-distended Objective Last Vital Signs Temp 98.1 F 06/04/25 07:31 Pulse 60 09/20/25 07:31 Resp 16 06/04/25 07:31 BP 123/61 06/04/25 07:31 Pulse Ox 98 06/04/25 07:31 Time Spent with Patient Time Spent with Patient: >50 minutes Time was spent: preparing to see the patient(eg.review tests), obtaining and/or reviewing separately otained hiistory, ordering medications,tests, procedures, referring, communicating with other health day care home provider, indepentently interpreting results, counseling the patient and care coordination
[2025-06-04 19:15] VITALS: BP 111/68; PULSE 75; RESP 20; TEMP 36.4; O2SAT 98
[2025-06-04 23:27] VITALS: BP 107/66; PULSE 60; RESP 18; TEMP 36.9; O2SAT 94
[2025-06-05 04:21] VITALS: BP 104/58; PULSE 69; RESP 16; TEMP 36.3; O2SAT 93
[2025-06-05 07:48] VITALS: BP 109/76; PULSE 58; RESP 16; TEMP 36.7; O2SAT 98
[2025-06-05] MEDS: Lactulose 20 GM/30 ML CUP 40 GM PO ×2 (07:53→11:39)
[2025-06-05] MEDS: Apixaban 5 MG TAB PO (07:53)
[2025-06-05] MEDS: Cyanocobalamin 500 MCG TAB 1000 MCG PO (07:53)
[2025-06-05] MEDS: Tamsulosin 0.4 MG CAPCR PO (07:53)
[2025-06-05] MEDS: Atorvastatin 20 MG TAB PO (07:54)
[2025-06-05] MEDS: Rifaximin 550 MG TAB PO (07:54)
[2025-06-05] MEDS: FLUoxetine 10 MG TAB PO (07:54)
[2025-06-05] MEDS: Magnesium Oxide 400 MG TAB PO (07:54)
[2025-06-05] MEDS: Cholecalciferol (Vitamin D3) 1,000 UNIT TAB 1000 UNITS PO (07:54)
[2025-06-05] MEDS: Pantoprazole 40 MG TABCR PO (07:54)
[2025-06-05] MEDS: Normal Saline Flush 10 ML SYR IVP (07:54)
[2025-06-05] MEDS: Empaglifozin 25 MG TAB PO (07:54)
--- NOTE | 2025-06-05 07:59 | PT.INTREAT ---
Date of service: 06/05/25 Time of Service: 07:45 PT Notes Visit Reasons: Encephalopathy Inpatient Physical Therapy Treatment Note [facility] Date: June 05, 2025 PRECAUTIONS:[place] SUBJECTIVE: Bo notes that he had a good night. Hoping to be able to go home later today. Offers no complaints of pain. OBJECTIVE: ? VITALS: monitored via nursing ? Therapeutic Activities ([id number]): Direct one-on-one instruction in dynamic activities to improve functional performance. ? BED MOBILITY/TRANSFERS? Rolling L/R: Independent Supine-sit: Independent? Sit-supine: Independent ? Sit-stand: Supervision? Stand-sit: Supervision ? Bed-Chair: CGA with FWW? Chair-bed: CGA with FWW Provided skilled cues and instruction on performance and technique throughout. ? GAIT? Assistive Device: FWW? Weight bearing: FWB Assist: CGA-Supervision ? Distance:? bed to chair ? Deviation: decreased keyana, WBOS, decreased stride length ? Therapeutic Exercises ([id number]): Direct one-on-one instruction in therapeutic exercises to develop strength, endurance, range of motion and flexibility. ? Exercises ? Seated March x15 R/L LAQ x15 R/L Ankle pumps x15 R/L Shoulder Forward Elevation 0-90 degrees x10 R/L Bicep 15x R/L Seated Hip Abd/Add isometrics 10x5 seconds Sit-stand 5x? Provided skilled instruction in proper exercise performance Provided skilled manual cues to facilitate proper muscle recruitment and/or form ASSESSMENT:? Improved functional bed mobility and transfers. Continues to require use of FWW for ambulation. PLAN: Continue with balance training, global strengthening and general conditioning for improved safety, mobility and activity tolerance until patient is ready for DC. TREATMENT CODE/TIME: [id number] minutes, [id number] minutes 30 minutes am session 7:40-8:10 am DISCHARGE RECOMMENDATION: Home with Resumption of HHPT when medically appropriate for discharge Marion Durbin, MPT
[2025-06-05] MEDS: Tiotropium Bromide-Respimat 10 PUFF INH 2 PUFF IH (08:20)
--- NOTE | 2025-06-05 10:11 | W.PM.DS.N ---
Date of service: 06/05/25 Time of Service: 10:11 DS: Diagnosis Discharge Diagnosis (1) Encephalopathy: Status: Acute (2) Cirrhosis: Status: Acute (3) Cavitating mass in right upper lung lobe: Status: Acute (4) COPD (chronic obstructive pulmonary disease): Status: Chronic (5) Diabetes: Status: Chronic (6) Afib: Status: Chronic (7) BPH (benign prostatic hyperplasia): Status: Chronic (8) MDD (major depressive disorder): Status: Chronic Discharge Plan Disposition Patient Disposition: Home W/Home Health Services Condition: Good Discharge Details Reason For Visit: Encephalopathy Admit Date/Time: 05/31/25 20:39 Admit Provider: Jas James Attending Provider: Jas James Primary Care Provider: Petrona Wynne Hospital Course Hospital Course: Patient initially presented with signs and symptoms consistent with hepatic encephalopathy having had a history of alcoholic cirrhosis. While hospitalized he had his lactulose increased and continuation of his rifaximin. He did require an enema but since that time has had appropriate amount of stool output. Additionally, patient also had significant improvement of his mental status and almost returning back to baseline functional status. Ultimately, is determined that the patient was stable for discharge home. Home Meds and New Rx's Prescriptions: New lactulose 20 gram packet 20 g PO TID Qty: 120 2RF Rx Instructions: titrate to ~3 loose bowel movements per day, can either increase dose to 40 grams and/or increase frequency to QID if needed Continued rifaximin 550 mg tablet 550 mg PO BID cyanocobalamin (vitamin B-12) 1,000 mcg capsule 1,000 mcg PO DAILY empagliflozin 25 mg tablet 25 mg PO DAILY atorvastatin 20 mg tablet 20 mg PO DAILY propranolol 80 mg tablet 40 mg PO DAILY cholecalciferol (vitamin D3) 25 mcg (1,000 unit) capsule 25 mcg PO DAILY acetaminophen 500 mg capsule 1,000 mg PO Q6H PRN pantoprazole 40 mg tablet,delayed release (DR/EC) 40 mg PO QAM Patient Comments: TAKE 1 TABLET BY MOUTH DAILY 30 MINUTES BEFORE FIRST MEAL Eliquis 5 mg tablet 5 mg PO Q12H Patient Comments: TAKE 1 TABLET BY MOUTH TWICE DAILY tamsulosin 0.4 mg capsule 0.4 mg PO DAILY Patient Comments: TAKE ONE CAPSULE BY MOUTH EVERY DAY fluoxetine 10 mg capsule 10 mg PO DAILY isavuconazonium sulfate 186 mg capsule 186 mg PO DAILY magnesium oxide 400 mg magnesium tablet 400 mg PO DAILY Ozempic 2 mg/dose (8 mg/3 mL) pen injector 2 mg subcut QWEEK sildenafil [Viagra] 50 mg tablet 50 mg PO DAILY PRN Rx Instructions: administer 30 minutes to 4 hours before activity tiotropium bromide 2.5 mcg/actuation mist 2 inh inhalation DAILY lidocaine 5 % adhesive patch,medicated 3 patch topical DAILY Rx Instructions: leave on most painful area for up to 12 hrs diclofenac sodium 1 % gel 2 g topical QID Patient Comments: Upper extremities QID Rx Instructions: apply to single elbow, wrist or hand; for hand includes palm/fingers/back of hand Discharge Instructions Activity:: Activity as Tolerated Equipment/Supplies:: No Equipment Needed Diet:: As Tolerated Discharge Orders Discharge Orders: Discharge Order (Routine); Ordered 06/05/25 Ordered By: Gaudencio Mullins DS: Summary Time Spent with Patient providing and/or coordinating discharge services: Greater than 30 minutes Status at Discharge Functional status at discharge: independent ambulation Overall status at discharge: patient is back to baseline Mental Status: mental status grossly normal Speech and Movement: speech and movement normal Mood: congruent mood Affect: normal affect Exam Narrative Exam Narrative: fatigued but well appearing older gentleman sitting up in the chair in no acute distress, AOx3, heart RRR, lungs CTAB, abdomen soft, non-tender, non-distended Psych Mental Status: mental status grossly normal Speech and Movement: speech and movement normal Mood: congruent mood Affect: normal affect DS: Data Vitals/I&O Vitals and I&O: Vital Signs Temperature 98.1 F 06/05/25 07:48 Temperature Source Temporal Artery Scan 06/05/25 07:48 Pulse 58 L 06/05/25 07:48 Pulse Rhythm Irregular 05/31/25 22:39 Pulse 95 H 05/31/25 20:20 Respiratory Rate 16 06/05/25 07:48 Respiratory Effort Normal 05/31/25 22:39 Respiratory Depth Normal 05/31/25 22:39 Respiratory Pattern Normal 05/31/25 22:39 Blood Pressure 109/76 06/05/25 07:48 Blood Pressure Mean 87 06/05/25 07:48 Blood Pressure Position Sitting 05/31/25 16:45 Pulse Oximetry 98 06/05/25 07:48 Oxygen Delivery Method Room Air 06/05/25 07:48 Oxygen Flow Rate 0 06/05/25 07:48 Pain Level 0 06/05/25 04:21 Comment rn notified 06/05/25 07:48 Intake & Output 06/04/25 06/05/25 06/05/25 17:59 05:59 17:59 Intake Total Output Total 400 / 400 1150 / 1550 Balance -400 / -400 -1130 / -1530 Weight 237 lb 7.005 oz Intake: IV Output: Urine 400 / 400 1150 / 1550 Other: Urine Color Yellow Straw Urine Appearance Clear Clear Urine Odor Normal Comment pt. voids in urinal. Stool Size Copious Copious Copious Stool Characteristics Liquid Liquid Liquid Brown Brown PFSH All Active Problems (Updated 06/03/25 @ 16:15 by aMrion Murray NP) Advanced care planning/counseling discussion (Acute) Palliative care encounter (Acute) Acute hepatic encephalopathy (Acute) BPH (benign prostatic hyperplasia) (Chronic) MDD (major depressive disorder) (Chronic) Dyslipidemia (Acute) Afib (Chronic) Diabetes (Chronic) COPD (chronic obstructive pulmonary disease) (Chronic) Cavitating mass in right upper lung lobe (Acute) Elevated MCV (Acute) Cirrhosis (Acute) Encephalopathy (Acute) S/P total knee arthroplasty (Acute) RIGHT Osteoarthritis of left knee (Acute) Social History Smoking/Tobacco Use Status: Former Tobacco Use Quit Date: 09/15/84 Tobacco: How many years used: 25 Smoking risk assessment performed?: Yes Alcohol Intake: current Alcohol Intake frequency: 0-2 drinks per day Alcohol type: beer Substance use type: does not use Housing: house Do you feel safe at home: Yes Do you feel safe in your relationship?: Yes Time Spent with Patient Time Spent with Patient: <45 minutes Time was spent: preparing to see the patient(eg.review tests), obtaining and/or reviewing separately otained hiistory, ordering medications,tests, procedures, referring, communicating with other health career portals teacher, indepentently interpreting results, counseling the patient and care coordination
--- NOTE | 2025-06-05 10:12 | PDOC.HHF2F_ITS ---
Home Health Referral Home Health Orders Clinical synopsis of why skilled professionals are needed: Cirrhosis, hepatic encephalopathy, a-fib, depression Registered Nurse: Check all that apply Instruct on new or changed medication(s)/assess compliance: Ordered Assess for exacerbation of medical condition, instruct patient/caregivers on signs and symptoms to report for early detection: Ordered Physical Therapist: Check all that apply Increase strength & endurance for safe mobility at home: Ordered To design/establish home maintenance program: Ordered Fall reduction therapy program for patient with history of frequent falls: Ordered Home safety evaluation and teaching/gait training including stair management (if applicable): Ordered Occupational Therapist: Evaluate and treat for patient unable to perform ADL/IADL/self-care: Ordered Upper extremity strengthening, range and motion: Ordered Intelligence Operations: Assist with community resources: Ordered Assist with computer terminal operator care planning: Ordered Encounter Date and Reason: I certify that a FTF encounter for this patient was performed on June 05, 2025 and that such encounter was related to the primary reason the patient requires home health services. The encounter was conducted in the following manner: * By me as the certifying physician, WILDLIFE ENFORCEMENT MAJOR, PA or * By an inpatient physician, WILDLIFE ENFORCEMENT MAJOR or PA during an inpatient stay who communicated findings to me, Certification And Authentication I certify that I composed the above information based on my clinical judgment relating to this patient's medical condition and, if applicable, clinical findings communicated to me by the NPP or inpatient physician who performed the FTF encounter. Name of Provider that will be monitoring home health services: Petrona Wynne
--- NOTE | 2025-06-05 10:59 | CMDISCH_ITS ---
Date of service: 06/05/25 Time of Service: 10:59 LACE Index Scoring Tool Questions: Length of Stay (in days): 4 - 6 Was the patient admitted via the E.D.?: Yes Comorbidities: Diabetes w/o Complication and Chronic Pulmonary Disease E.D. Visits: 2 Answers: Total Score: 12 Risk of Readmission: High Risk Care Management Discharge Plan Reason for Hospitalization: encephalopathy, cirrhosis Discharge Plan: Bo is discharged home today with a continuation of his HH services, RN, PT/OT and CONSUMER RELATIONS SPECIALIST. He will f/u with his PCP and continue per his plan of care. Bo will transport home with his , Susan. Patient/Family Education Needs: Review of discharge instructions, activity, limitations, and discuss Ask me 3. Services Needed at Discharge: Home Health Care Services (SN, PT/OT and CONSUMER RELATIONS SPECIALIST)
== END 2025-06-05 12:06 | disposition home health service (06) | DRG 443 ==
LOC: ER 16:45 → MS 22:22
PROVIDERS: Family Medicine; Admitting Provider Hospitalist; Emergency Provider Emergency Medicine; PCP Physician Assistant; Responsible Provider Family Medicine; Visit Provider Hospitalist
DX: K76.82 Hepatic encephalopathy (principal); K74.60 Unspecified cirrhosis of liver; R79.89 Other specified abnormal findings of blood chemistry; J98.4 Other disorders of lung; J44.9 Chronic obstructive pulmonary disease, unspecified; Z79.899 Other long term (current) drug therapy; E11.9 Type 2 diabetes mellitus without complications; E78.5 Hyperlipidemia, unspecified; N40.0 Benign prostatic hyperplasia without lower urinary tract symptoms; F32.9 Major depressive disorder, single episode, unspecified; I48.91 Unspecified atrial fibrillation; Z96.651 Presence of right artificial knee joint; Z79.85 Long-term (current) use of injectable non-insulin antidiabetic drugs
CPT/HCPCS: 00123; 36415; 80053; 80307; 92610; 93005; 94640; 97110; 97112; 97162; 97530; 99285; 70450; 71045; 81003; 81015; 82140; 82607; 82746; 83036; 83540; 83550; 83735; 83880; 84443; 84484; 85025; 85610; 93010; 94664; 99222; 99232; 99233; 99238

== ENCOUNTER 2025-07-15 10:55 | Outpatient (REF) | payer SELFPAY ==
[2025-07-15 21:20] LABS: Glucose >=1000 mg/dL (Negative)
[2025-07-15 21:26] LABS: RBC Negative HPF (0-2); WBC Negative HPF (0-5)
== END 2025-07-15 10:56 | disposition home or self-care (01) ==
LOC: LBN 10:55
PROVIDERS: PCP Physician Assistant; Visit Provider Family Medicine
DX: N39.0 Urinary tract infection, site not specified (principal)
CPT/HCPCS: 81003; 81015; 87086